=== PATIENT | female | born 1985 | race Two or more races ===

== ENCOUNTER 2024-05-20 11:40 | Emergency (ER) | payer MEDICAID, OTHER ==
[~2024-05-20] VITALS: Ht 170.2 cm; Wt 92.8 kg
--- NOTE | 2024-05-20 11:55 | ED.PDOC ---
GI ASSESSMENT HPI Comments 38Y F with PMHx fibroids presents to ED for chief complaint intermittent abd pain x4days with n/v/d and back pain. Pt states abd pain is located on middle and suprapubic region and is described as contractions. Pt denies chest pain, SOB, urinary symptoms, flank pain, and flu-like symptoms. Pt denies sick contact. Pt will have surgery for fibroids scheduled soon. No other symptoms or history reported. Time Seen by MD: 11:45 Reviewed Notes: Nurses Notes, Medications, Allergies Allergies: Coded Allergies: NO KNOWN ALLERGIES (Unverified , 05/20/24) Information Source: Patient Mode of Arrival: Ambulatory Timing: Days Duration: Since onset Quality: Other (contraction-like) Vomitus: Watery Stool: Loose, Watery Severity: Mild Recent: None Recent Hx of: None Pain Location: Epigastric, Periumbilical, Suprapubic Modifying Factors: Nothing Associated sign and symptoms: Nausea, Vomiting, Diarrhea, Abdominal Pain, Other Past Medical History PAST MEDICAL HISTORY: Denies Surgical History: Denies all surgeries [employer] History: Uterine Fibroids Family History Family History: Unknown Social History Smoker: Non-Smoker Alcohol: Denies ETOH Use Drugs: Denies Drug Use Lives In: Home Constitutional: denies: chills, diaphoresis, fatigue, fever, malaise, sweats, weakness, others EENTM: denies: blurred vision, double vision, ear bleeding, ear discharge, ear drainage, ear pain, ear ringing, eye pain, eye redness, hearing loss, mouth pain, mouth swelling, nasal discharge, nose bleeding, nose congestion, nose pain, photophobia, tearing, throat pain, throat swelling, voice changes, others Respiratory: denies: cough, hemoptysis, orthopnea, SOB at rest, shortness of breath, SOB with excertion, stridor, wheezing, others Cardiovascular: denies: chest pain, dizzy spells, diaphoresis, Dyspnea on exertion, edema, irregular heart beat, left arm pain, lightheadedness, pa lpitations, PND, syncope, others Gastrointestinal: reports: abdominal pain, diarrhea, nausea, vomiting; denies: abdomen distended, blood streaked bowels, constipated, dysphagia, difficulty swallowing, hematemesis, melena, poor appetite, poor fluid intake, rectal bleeding, rectal pain, others Genitourinary: denies: abnormal vagina bleeding, burning, dyspareunia, dysuria, flank pain, frequency, hematuria, incontinence, pain, , vagina discharge, urgency, others Neurological: denies: dizziness, fainting, headache, left sided numbness, left sided weakness, numbness, paresthesia, pre-existing deficit, right sided numbness, right sided weakness, seizure, speech problems, tingling, tremors, weakness, others Musculoskeletal: reports: back pain; denies: gout, joint pain, joint swelling, muscle pain, muscle stiffness, neck pain, others Integumetry: denies: bruises, change in color, change in hair/nails, dryness, laceration, lesions, lumps, rash, wounds, others Allergic/Immunocompromised: denies: Difficulty Healing, Frequent Infections, Hives, Itching, others Hematologic/Lymphatic: denies: anemia, blood clots, easy bleeding, easy bruis ing, swollen glands, others Endocrine: denies: excessive hunger, excessive sweating, excessive thirst, exc essive urination, flushing, intolerance to cold, intolerance to heat, unexplained weight gain, unexplained weight loss, others Psychiatric: denies: anxiety, bipolar disorder, depression, hopeless, panic disorder, schizophrenia, sleepless, suicidal, others All Other Systems: Reviewed and Negative (decreas) Physical Exam General Appearance: No Apparent Distress, Normal HEENT: Normal ENT Inspection, Pharynx Normal, TMs Normal Neck: Full Range of Motion, Non-Tender, Normal, Normal Inspection Respiratory: Chest Non-Tender, Lungs Clear, No Accessory Muscle Use, No Respiratory Distress, Normal Breath Sounds Cardiovascular: No Edema, No JVD, No Murmur, No Gallop, Normal Peripheral Pulses, Regular Rate/Rhythm Breast Exam: Deferred Gastrointestinal: No Organomegaly, No Pulsatile Mass, Normal Bowel Sounds, Soft, Suprapubic, Tenderness Genitalia: Deferred Pelvic: Deferred Rectal: Deferred Extremities: No calf tenderness, Normal capillary refill, Normal inspection, Normal range of motion, Non-tender, No pedal edema Musculoskeletal : Apperance: Normal Neurologic: Alert, supervisor mail carriers II-XII nml as Tested, No Motor Deficits, Normal Affect, Normal Mood, No Sensory Deficits Cerebellar Function: Normal Reflexes: Normal Skin: Dry, Normal Color, Warm Lymphatic: No Adenopathy Was a procedure done? Was a procedure done?: No GI differential Dx Differential Diagnosis: Gastritis/PUD, Gastroenteritis, Electrolyte Imbalance, Bacterial, Viral X-Ray, Labs, Meds, VS Vital Signs Date Time Temp Pulse Resp B/P (MAP) Pulse Ox O2 Delivery O2 Flow Rate FiO2 05/20/24 13:12 73 100 Room Air* 0 21 05/20/24 12:48 73 18 100 Room Air 05/20/24 12:48 98.7 73 18 109/63 (78) 100 98.7 05/20/24 11:52 98.7 88 16 146/95 (112) 98 Lab Test 05/20/24 12:02 05/20/24 12:00 05/20/24 11:47 Range/Units White Blood Count 5.3 4.4-10.8 10^3/uL Red Blood Count 4.58 4.0-5.20 10^6/uL Hemoglobin 9.5 L 12.2-16.2 g/dL Hematocrit 31.1 L 36.0-46.0 % Mean Corpuscular Volume 67.7 L 80.0-100.0 fL Mean Corpuscular Hemoglobin 20.7 L 28.0-32.0 pg Mean Corpuscular Hemoglobin Concent 30.6 L 32.0-36.0 g/dL Red Cell Distribution Width 17.2 H 11.8-14.3 % Platelet Count 326 140-450 10^3/uL Mean Platelet Volume 8.9 6.9-10.8 fL Neutrophils (%) (Auto) 59.9 37.0-80.0 % Lymphocytes (%) (Auto) 27.9 10.0-50.0 % Monocytes (%) (Auto) 8.5 0.0-12.0 % Eosinophils (%) (Auto) 0.7 0.0-7.0 % Basophils (%) (Auto) 3.0 H 0.0-2.0 % Neutrophils # (Auto) 3.2 1.6-8.6 10 ^3/uL Lymphocytes # (Auto) 1.5 0.4-5.4 10 ^3/uL Monocytes # (Auto) 0.4 0-1.3 10 ^3/uL Eosinophils # (Auto) 0 0-0.8 10 ^3/uL Basophils # (Auto) 0.2 0-0.2 10 ^3/uL Nucleated Red Blood Cells 0.3 % Platelet Estimate Adequate Hypochromasia (manual) Slight Microcytosis Slight Tear Drop Cells Few Ovalocytes Few Sodium Level 140 136-145 mmol/L Potassium Level 3.3 L 3.5-5.1 mmol/L Chloride Level 108 H 98-107 mmol/L Carbon Dioxide Level 25 20-31 mmol/L Anion Gap 7 5-15 Blood Urea Nitrogen 9 9-23 mg/dL Creatinine 0.77 0.550-1.02 mg/dL Glomerular Filtration Rate Calc 102 >90 mL/min BUN/Creatinine Ratio 11.7 10.0-20.0 Serum Glucose 104 74-106 mg/dL Calcium Level 9.6 8.7-10.4 mg/dL Total Bilirubin 0.6 0.2-1.0 mg/dL Aspartate Amino Transferase (AST) 32 13-40 U/L Alanine Aminotransferase (ALT) 30 7-40 U/L Alkaline Phosphatase 96 46-116 U/L Total Protein 8.0 5.7-8.2 g/dL Albumin 4.7 3.2-4.8 g/dL Lipase 42 12-53 U/L Influenza Type A Antigen Negative Negative Influenza Type B Antigen Negative Negative Urine Color Yellow Yellow Urine Clarity Turbid H Clear Urine pH 5.5 5.0-9.0 Urine Specific Weir 1.023 1.001-1.035 Urine Protein Trace H Negative Urine Ketones Trace Negative Urine Blood Negative Negative /uL Urine Nitrite Negative Negative Urine Bilirubin Negative Negative Urine Urobilinogen Normal Negative mg/dL Urine Leukocyte Esterase 3+ Negative /uL Urine RBC 4 0 - 4 /hpf Urine WBC 43 0 - 5 /hpf Urine Squamous Epithelial Cells Mod <5 /hpf Urine Bacteria None seen None Seen /hpf Urine Mucus Few None Seen Urine Glucose Normal Normal mg/dL Urine Test Negative Negative Current Medications Medications (Trade) Dose Ordered Sig/Leyla Route Start Time Stop Time Status Last Admin Sodium Chloride 1,000 ml @ 1,000 mls/hr Q1H ONCE IV 05/20/24 12:00 05/20/24 12:59 DC 05/20/24 12:30 Ondansetron HCl (Zofran) 4 mg ONCE ONCE IV 05/20/24 12:00 05/20/24 12:01 DC 05/20/24 12:[address] [address] Ph: [phone] DIAGNOSTIC IMAGING Diagnostic Imaging Report : [id number] Signed PATIENT: ARLENE PALMER CACCT: [id number] UNIT: [id number] : 1985 LOC: ER ROOM / BED: / AGE / SEX: 38 / F ADM STATUS: REG ER SERVICE 1149 ORDERING PHYSICIAN: SUE LÓPEZ MD PROCEDURE(s): CXRP - CHEST PORTABLE REASON: nausea ORDER NUMBER(s): [id number], ACCESSION NUMBER(s): [id number] CHEST RADIOGRAPH Indication: nausea Technique: PA upright view of the chest was performed. COMPARISON: None FINDINGS: No pneumothorax, pulmonary edema, or consolidative infiltrates. The heart is not enlarged. Fractures are identified about the bony thorax. There is mild thoracic scoliosis. IMPRESSION: No acute intrathoracic process. ATED BY: KAVITA SLAUGHTER MD DICTATED DATE/TIME: 05/20/24 1322 SIGNED BY: KAVITA SLAUGHTER MD SIGNED DATE/TIME: 05/20/24 1322 CC: [place] [id number] Ph: [phone] DIAGNOSTIC IMAGING Diagnostic Imaging Report : [id number] Signed PATIENT: ARLENE PALMER CACCT: [id number] UNIT: [id number] : 1985 LOC: ER ROOM / BED: / AGE / SEX: 38 / F ADM STATUS: REG ER SERVICE 1149 ORDERING PHYSICIAN: SUE LÓPEZ MD PROCEDURE(s): ABPL - CT AB PEL WO CON-NO ORAL OR IV REASON: abdominal pain, nausea, vomiting, diarrhea ORDER NUMBER(s): [id number], ACCESSION NUMBER(s): [id number] Procedure: CT CT AB PEL WO CON-NO ORAL OR IV 05/20/2024 01:14 PM Indication: abdominal pain, nausea, vomiting, diarrhea Comparison Study: None available at time of dictation. Technique: Axial images were obtained and reformatted in coronal and sagittal planes. All CT scans at this medical facility are performed using dose modulation techniques as appropriate to a performed exam including the following: Automated exposure control was utilized; adjustment of the MA and/or KV according to patient size; and use of iterative reconstruction technique. CT Dose: CTDI volume is 19.24 mGy. Dose-length product is 905.52 mGy*cm FINDINGS: Lower Chest: Unremarkable. Hepatobiliary: Unremarkable. Spleen: Mildly enlarged spleen, 12.8 cm in craniocaudal. Pancreas: Unremarkable. Adrenal Glands: Unremarkable. tract: The kidneys are normal in size bilaterally without hydronephrosis or nephrolithiasis. The urinary bladder is unremarkable. GI tract: The stomach is grossly normal in appearance. No evidence of small bowel obstruction. Liquid stool is seen in the lumen of the ascending colon. No bowel wall thickening is noted.. The appendix is not visualized. No inflammatory change is noted in the right lower quadrant. Lymphatics: No mesenteric, retroperitoneal or periportal lymphadenopathy. Vasculature: The abdominal aorta is normal in in caliber. Pelvic Organs: Retroverted uterus. Few subcentimeter calcifications noted in the uterus reflecting calcified leiomyomas. Bones/soft tissues: No acute abnormality. Other: None. IMPRESSION: 1. Liquid stool in the lumen of the ascending colon compatible with diarrheal s collado. No signs of colitis. Small bowel is unremarkable. ATED BY: AKUA BEST MD DICTATED DATE/TIME: 05/20/24 1351 SIGNED BY: AKUA BEST MD SIGNED DATE/TIME: 05/20/24 1351 CC: Time of 1ST Reevaluation: 12:15 Reevaluation 1ST: Unchanged Time of 2ND Reevaluation: 14:32 Reevaluation 2ND: Improved Patient Education/Counseling: Diagnosis, Treatment, Prognosis, Need For Follow Up Family Education/Counseling: No Family Present Additional Information I reviewed the following notes from patient's past medical encounters: None The following tests were ordered, and results were reviewed by me: CBC, CMP, Lipase, UA, urine test, rapid influenza A&B, CXR, CT abd/pelvis WO contrast Additional Information was gathered from interviewing the following independent historians: None I reviewed and agreed with the following test results read by other providers: CXR, CT abd/pelvis WO contrast I discussed treatment and results with medical personnel. pt is feeling better now. the ct shows no acute pathology. her urine is contaminated, but may reflect an uti. i will start her on keflex for the uti and imodium. she is stable for discharge Departure 1 Departure Time of Disposition: 14:33 Impression: Primary Impression: Abdominal pain Qualified Codes: R10.9 - Unspecified abdominal pain Additional Impressions: Diarrhea Qualified Codes: R19.7 - Diarrhea, unspecified UTI (urinary tract infection) Qualified Codes: N30.00 - Acute cystitis without hematuria Disposition: HOME / SELF CARE / HOMELESS Condition: Good e-Prescriptions Loperamide Hcl (Imodium) 2 Mg Cp 2 MG PO Q12HP PRN for 2 Days, #4 CAP Prov: SUE LÓPEZ MD 05/20/24 Cephalexin Monohydrate (Cephalexin) 500 Mg Tab 1 TAB PO QID, #40 TAB Prov: SUE LÓPEZ MD 05/20/24 Discharged With: Self Critical Care Note Critical Care Time?: Yes (55 min-critical care time only) Critical care comment: Due to concerns for patients condition deteriorating, the care required my highest level of attention and readiness to intervene. I assessed the patient, reviewed the medical records, ordered the appropriate tests and treatments, then reassessed for results and responsiveness. I communicated with medical personnel and consultants and formulated a plan of care. Total critical care time excludes any procedures Stability Stability form required: No Heart Score Heart Score: Heart Score Response (Comments) Value History N/A 0 EKG N/A 0 Age N/A 0 Risk Factors N/A 0 Troponin N/A 0 Total 0 I personally scribed for SUE LÓPEZ MD (FRANCISCO J) on 05/20/24 at 11:55. Electronically submitted by Mary Meng ([employer]). I personally scribed for SUE LÓPEZ MD (FRANCISCO J) on 05/20/24 at 11:57. Electronically submitted by Mary Meng ([employer]). I personally scribed for SUE LÓPEZ MD (FRANCISCO J) on 05/20/24 at 13:36. Electronically submitted by Mary Meng ([employer]). I personally scribed for SUE LÓPEZ MD ([facility] on 05/20/24 at 13:55. Electronically submitted by Mary Meng ([email or web address]). SUE LÓPEZ MD May 20, 2024 11:55
[2024-05-20] MEDS: SODIUM CHLORIDE 0.9% 1,000 ML IV ONE (12:30)
[2024-05-20] MEDS: ONDANSETRON HCL 4 MG/2 ML VIAL IV ONE (12:41)
[2024-05-20 12:44] LABS: Urine Bacteria None Seen /hpf (None Seen)
[2024-05-20 12:44] LABS: Alanine Aminotransferase 30 U/L (7-40); Albumin 4.7 g/dL (3.2-4.8); Alkaline Phosphatase 96 U/L (46-116); Anion Gap 7 (5-15); Aspartate Aminotransferase 32 U/L (13-40); BUN/Creatinine Ratio 11.7 (10.0-20.0); Blood Urea Nitrogen 9 mg/dL (9-23); Calcium 9.6 mg/dL (8.7-10.4); Carbon Dioxide 25 mmol/L (20-31); Glucose 104 mg/dL (74-106); Lipase 42 U/L (12-53); Sodium 140 mmol/L (136-145)
[2024-05-20 12:45] LABS: Bilirubin, Total 0.6 mg/dL (0.2-1.0)
[2024-05-20 12:51] LABS: Rapid Influenza A Negative (Negative); Rapid Influenza B Negative (Negative)
[2024-05-20 12:51] LABS: Eosinophils # (auto) 0 10 ^3/uL (0-0.8); Hemoglobin 9.5 g/dL (12.2-16.2); Lymphocytes # (auto) 1.5 10 ^3/uL (0.4-5.4); Monocytes # (auto) 0.4 10 ^3/uL (0-1.3); Neutrophils # (auto) 3.2 10 ^3/uL (1.6-8.6); Nucleated Red Blood Cells % 0.3 %
[2024-05-20 12:53] LABS: Basophils # (auto) 0.2 10 ^3/uL (0-0.2); Eosinophils % (auto) 0.7 % (0.0-7.0); Hematocrit 31.1 % (36.0-46.0); Lymphocytes % (auto) 27.9 % (10.0-50.0); Mean Corpuscular Hemoglobin 20.7 pg (28.0-32.0); Mean Corpuscular Hgb Conc. 30.6 g/dL (32.0-36.0); Mean Corpuscular Volume 67.7 fL (80.0-100.0); Monocytes % (auto) 8.5 % (0.0-12.0); Neutrophils % (auto) 59.9 % (37.0-80.0); Platelet Count (auto) 326 10^3/uL (140-450); Red Blood Cells 4.58 10^6/uL (4.0-5.20); Red Cell Distribution Width 17.2 % (11.8-14.3); White Blood Cell 5.3 10^3/uL (4.4-10.8)
[2024-05-20 13:07] LABS: Hypochromia Slight; Ovalocytes FEW; Tear Drop Cells FEW
[2024-05-20 13:08] LABS: Platelet Estimate Adequate
[2024-05-20 13:12] VITALS: PULSE 73; O2SAT 100
[2024-05-20 13:13] LABS: Urine Blood Negative /uL (Negative); Urine Clarity Turbid (Clear); Urine Color Yellow (Yellow); Urine Mucus FEW (None Seen); Urine Protein, UAD TRACE (Negative); Urine Specific Gravity 1.023 (1.001-1.035); Urine Squamous Epithelial Cell MOD /hpf (<5); Urine Urobilinogen Normal (Negative); Urine WBC 43 /hpf (0 - 5); Urine pH 5.5 (5.0-9.0)
[2024-05-20 13:15] LABS: Chloride 108 mmol/L (98-107); Potassium 3.3 mmol/L (3.5-5.1)
--- NOTE | 2024-05-20 13:25 | DVH ---
CHEST RADIOGRAPH Indication: nausea Technique: PA upright view of the chest was performed. COMPARISON: None FINDINGS: No pneumothorax, pulmonary edema, or consolidative infiltrates. The heart is not enlarged. Fractures are identified about the bony thorax. There is mild thoracic scoliosis. IMPRESSION: No acute intrathoracic process.
--- NOTE | 2024-05-20 13:54 | DVH ---
Procedure: CT CT AB PEL WO CON-NO ORAL OR IV 05/20/2024 01:14 PM Indication: abdominal pain, nausea, vomiting, diarrhea Comparison Study: None available at time of dictation. Technique: Axial images were obtained and reformatted in coronal and sagittal planes. All CT scans at this medical facility are performed using dose modulation techniques as appropriate t o a performed exam including the following: Automated exposure control was utilized; adjustment of th e MA and/or KV according to patient size; and use of iterative reconstruction technique. CT Dose: CTDI volume is 19.24 mGy. Dose-length product is 905.52 mGy*cm FINDINGS: Lower Chest: Unremarkable. Hepatobiliary: Unremarkable. Spleen: Mildly enlarged spleen, 12.8 cm in craniocaudal. Pancreas: Unremarkable. Adrenal Glands: Unremarkable. tract: The kidneys are normal in size bilaterally without hydronephrosis or nephrolithiasis. The urinary bladder is unremarkable. GI tract: The stomach is grossly normal in appearance. No evidence of small bowel obstruction. Liquid stool is seen in the lumen of the ascending colon. No bowel wall thickening is noted.. The appendi x is not visualized. No inflammatory change is noted in the right lower quadrant. Lymphatics: No mesenteric, retroperitoneal or periportal lymphadenopathy. Vasculature: The abdominal aorta is normal in in caliber. Pelvic Organs: Retroverted uterus. Few subcentimeter calcifications noted in the uterus reflecting c alcified leiomyomas. Bones/soft tissues: No acute abnormality. Other: None. IMPRESSION: 1. Liquid stool in the lumen of the ascending colon compatible with diarrheal state. No signs of coli tis. Small bowel is unremarkable.
[2024-05-20] MEDS ORDERED: LOPE2CAP16 PO (14:35)
[2024-05-20] MEDS ORDERED: CEPH500T PO (14:35)
[2024-05-20 15:00] VITALS: BP 110/58; PULSE 69; RESP 16; TEMP 98.2; O2SAT 100
== END 2024-05-20 15:01 | disposition home or self-care (01) ==
LOC: ER 11:43
DX: N39.0 Urinary tract infection, site not specified (principal); R10.9 Unspecified abdominal pain; R19.7 Diarrhea, unspecified; D25.9 Leiomyoma of uterus, unspecified; Z32.02 Encounter for pregnancy test, result negative
CPT/HCPCS: 36415; 71045; 74176; 80053; 81001; 81025; 83690; 85025; 87804; 96361; 96374; 99285; J2405

== ENCOUNTER 2024-11-17 14:05 | Emergency (ER) | payer MEDICAID ==
[~2024-11-17] VITALS: Ht 170.2 cm; Wt 93.1 kg
[~2024-11-17 14:05] MED LIST: CEPH500T PO; LOPE2CAP16 PO
[2024-11-17 15:09] LABS: Urine Protein, UAD Negative (Negative)
[2024-11-17 15:27] LABS: Hematocrit 31.8 % (36.0-46.0); Hemoglobin 9.6 g/dL (12.2-16.2); Mean Corpuscular Hemoglobin 19.0 pg (28.0-32.0); Mean Corpuscular Volume 62.8 fL (80.0-100.0); Nucleated Red Blood Cells % 0.1 %
[2024-11-17 15:34] LABS: Chloride 104 mmol/L (98-107); Sodium 139 mmol/L (136-145)
[2024-11-17 15:35] LABS: Anion Gap 8 (5-15); Calcium 9.9 mg/dL (8.7-10.4); Carbon Dioxide 27 mmol/L (20-31); Potassium 3.5 mmol/L (3.5-5.1)
--- NOTE | 2024-11-17 15:38 | ED.PDOC ---
GI ASSESSMENT HPI Comments A 39 YEAR OLD FEMALE, WITH A SHX OF HYSTERECTOMY IN 07/25, PRESENTS TO THE ED WITH COMPLAINT OF LLQ ABDOMINAL PAIN FOR X2 DAYS. PATIENT DENIES DYSURIA, URGENCY, HEMATURIA, FEVER, CHILLS, SHORTNESS OF BREATH, CHEST PAIN, NAUSEA, VOMITING, HEADACHE, OR OTHER COMPLAINTS. NO OTHER SYMPTOMS OR MODIFYING FACTORS AT THIS TIME. PATIENT IS ALERT, ORIENTED X 4, AND HAS STEADY GAIT. Chief Complaint: Abdominal Pain Time Seen by MD: 15:05 Primary Care Provider: ADA Reviewed Notes: Nurses Notes, Medications, Allergies Allergies: Coded Allergies: NO KNOWN ALLERGIES (Unverified , 05/20/24) Home Meds Active Scripts Loperamide Hcl (Imodium) 2 Mg Cp, 2 MG PO Q12HP PRN for 2 Days, #4 CAP Prov:SUE LÓPEZ MD 05/21/24 Cephalexin Monohydrate (Cephalexin) 500 Mg Tab, 1 TAB PO QID, #40 TAB Prov:SUE LÓPEZ MD 05/21/24 Information Source: Patient Mode of Arrival: Ambulatory Timing: Days Duration: Since onset Prehospital treatment: None Quality: Aching, Cramping, Colicky Vomitus: None Severity: Moderate Recent: None Recent Hx of: None Pain Location: LLQ Associated sign and symptoms: Abdominal Pain Past Medical History PAST MEDICAL HISTORY: Denies Surgical History: Hysterectomy CHEMIST ORGANIC History: Uterine Fibroids Family History Family History: Unknown Social History Smoker: Non-Smoker Alcohol: Denies ETOH Use Drugs: Denies Drug Use Lives In: Home Constitutional: denies: chills, diaphoresis, fatigue, fever, malaise, sweats, weakness, others EENTM: denies: blurred vision, double vision, ear bleeding, ear discharge, ear drainage, ear pain, ear ringing, eye pain, eye redness, hearing loss, mouth pain, mouth swelling, nasal discharge, nose bleeding, nose congestion, nose pain, photophobia, tearing, throat pain, throat swelling, voice changes, others Respiratory: denies: cough, hemoptysis, orthopnea, SOB at rest, shortness of breath, SOB with excertion, stridor, wheezing, others Cardiovascular: denies: chest pain, dizzy spells, diaphoresis, Dyspnea on exertion, edema, irregular heart beat, left arm pain, lightheadedness, palpitations, PND, syncope, others Gastrointestinal: reports: abdominal pain; denies: abdomen distended, blood streaked bowels, constipated, diarrhea, dysphagia, difficulty swallowing, hematemesis, melena, nausea, poor appetite, poor fluid intake, rectal bleeding, rectal pain, vomiting, others Genitourinary: denies: abnormal vagina bleeding, burning, dyspareunia, dysuria, flank pain, frequency, hematuria, incontinence, pain, , vagina discharge, urgency, others Neurological: denies: dizziness, fainting, headache, left sided numbness, left sided weakness, numbness, paresthesia, pre-existing deficit, right sided numbness, right sided weakness, seizure, speech problems, tingling, tremors, weakness, others Musculoskeletal: denies: back pain, gout, joint pain, joint swelling, muscle p ain, muscle stiffness, neck pain, others Integumetry: denies: bruises, change in color, change in hair/nails, dryness, laceration, lesions, lumps, rash, wounds, others Allergic/Immunocompromised: denies: Difficulty Healing, Frequent Infections, Hives, Itching, others Hematologic/Lymphatic: denies: anemia, blood clots, easy bleeding, easy bruising, swollen glands, others Endocrine: denies: excessive hunger, excessive sweating, excessive thirst, excessive urination, flushing, intolerance to cold, intolerance to heat, unexplained weight gain, unexplained weight loss, others Psychiatric: denies: anxiety, bipolar disorder, depression, hopeless, panic disorder, schizophrenia, sleepless, suicidal, others All Other Systems: Reviewed and Negative Physical Exam General Appearance: No Apparent Distress, Obese HEENT: Normal ENT Inspection, PERRL/EOMI, Pharynx Normal, TMs Normal Neck: Full Range of Motion, Non-Tender, Normal, Normal Inspection Respiratory: Chest Non-Tender, Lungs Clear, No Accessory Muscle Use, No Respiratory Distress, Normal Breath Sounds Cardiovascular: No Edema, No JVD, No Murmur, No Gallop, Normal Peripheral Pulses, Regular Rate/Rhythm Breast Exam: Deferred Gastrointestinal: LLQ, No Organomegaly, No Pulsatile Mass, Normal Bowel Sounds, Soft, Tenderness (LEFT MIDDLE ABD, NO GUARDING AND REBOUND TENDERNESS. ) Genitalia: Deferred Pelvic: Deferred Rectal: Deferred Extremities: No calf tenderness, Normal capillary refill, Normal inspection, Normal range of motion, Non-tender, No pedal edema Musculoskeletal : Apperance: Normal Neurologic: Alert, hardscape foreman II-XII nml as Tested, No Motor Deficits, Normal Affect, Normal Mood, No Sensory Deficits Cerebellar Function: Normal Reflexes: Normal Skin: Dry, Normal Color, Warm Peripheral Pulses: 2+ carotid (R), 2+ carotid (L) Lymphatic: No Adenopathy Was a procedure done? Was a procedure done?: No GI differential Dx Differential Diagnosis: Gastroenteritis, Hernia, Inflammatory BD, UTI, Urolithiasis, Dehydration, Bacterial, Parasitic, Viral X-Ray, Labs, Meds, VS Vital Signs Date Time Temp Pulse Resp B/P (MAP) Pulse Ox O2 Delivery O2 Flow Rate FiO2 11/17/24 14:30 98.9 89 16 140/85 (103) 100 98.9 Lab Test 11/17/24 15:13 11/17/24 14:32 Range/Units White Blood Count 8.8 4.4-10.8 10^3/uL Red Blood Count 5.06 4.0-5.20 10^6/uL Hemoglobin 9.6 L 12.2-16.2 g/dL Hematocrit 31.8 L 36.0-46.0 % Mean Corpuscular Volume 62.8 L 80.0-100.0 fL Mean Corpuscular Hemoglobin 19.0 L 28.0-32.0 pg Mean Corpuscular Hemoglobin Concent 30.3 L 32.0-36.0 g/dL Red Cell Distribution Width 19.7 H 11.8-14.3 % Platelet Count 353 140-450 10^3/uL Mean Platelet Volume 8.7 6.9-10.8 fL Neutrophils (%) (Auto) 59.1 37.0-80.0 % Lymphocytes (%) (Auto) 32.6 10.0-50.0 % Monocytes (%) (Auto) 5.9 0.0-12.0 % Eosinophils (%) (Auto) 1.6 0.0-7.0 % Basophils (%) (Auto) 0.8 0.0-2.0 % Neutrophils # (Auto) 5.2 1.6-8.6 10 ^3/uL Lymphocytes # (Auto) 2.9 0.4-5.4 10 ^3/uL Monocytes # (Auto) 0.5 0-1.3 10 ^3/uL Eosinophils # (Auto) 0.1 0-0.8 10 ^3/uL Basophils # (Auto) 0.1 0-0.2 10 ^3/uL Nucleated Red Blood Cells 0.1 % Sodium Level 139 136-145 mmol/L Potassium Level 3.5 3.5-5.1 mmol/L Chloride Level 104 98-107 mmol/L Carbon Dioxide Level 27 20-31 mmol/L Anion Gap 8 5-15 Blood Urea Nitrogen 14 9-23 mg/dL Creatinine 0.84 0.550-1.02 mg/dL Glomerular Filtration Rate Calc 91 >90 mL/min BUN/Creatinine Ratio 16.7 10.0-20.0 Serum Glucose 90 74-106 mg/dL Calcium Level 9.9 8.7-10.4 mg/dL Urine Color Yellow Yellow Urine Clarity Clear Clear Urine pH 5.5 5.0-9.0 Urine Specific Ledbetter 1.030 1.001-1.035 Urine Protein Negative Negative Urine Ketones Negative Negative Urine Blood Negative Negative /uL Urine Nitrite Negative Negative Urine Bilirubin Negative Negative Urine Urobilinogen 2 H Negative mg/dL Urine Leukocyte Esterase Negative Negative /uL Urine RBC 1 0 - 4 /hpf Urine Microscopic WBC 1 0-5 /HPF Urine Squamous Epithelial Cells Few <5 /hpf Urine Bacteria None seen None Seen /hpf Urine Mucus Few None Seen Urine Glucose Normal Normal mg/dL Urine Test Negative Negative CT CT AB PEL WO CON-NO ORAL OR IV INDICATION: LEFT MIDDLE ABD PAIN EXAM DATE: 11/17/2024 03:31 PM COMPARISON: CT CT AB PEL WO CON-NO ORAL OR IV on DOS: 05/20/24 RADIATION DOSE: CTDIvol: 14 mGy, DLP: 716 mGy*cm PROCEDURE: Helical CT images were obtained of the abdomen and pelvis without IV contrast Sagittal and coronal reconstructions are provided. ORAL CONTRAST: None. ADDITIONAL IMAGES / REFORMATS: None All CT scans at this medical facility are performed using dose modulation techniques as appropriate to a performed exam including the following: Automated exposure control was utilized; adjustment of the MA and/or KV according to patient size; and use of iterative reconstruction technique. FINDINGS: LUNG BASE: Normal. LIVER: Normal. GALLBLADDER AND BILIARY TREE: No calcified gallstones. Normal caliber wall. No intra- or extrahepatic biliary ductal dilation. PANCREAS: Normal. SPLEEN: Normal. BOWEL: Mild left pericolonc edema could be mild colitis. Appendix is not seen. ADRENALS: Normal. KIDNEYS AND URETER: Normal. BLADDER: Normal. REPRODUCTIVE ORGANS: Normal. LYMPH NODES:No lymphadenopathy. PERITONEUM: No ascites or free air. No other fluid collection. Trace pelvic fluid. VESSELS: Scattered atherosclerotic calcifications are noted. RETROPERITONEUM: Normal. ABDOMINAL WALL: Normal. BONES: Scattered osseous degenerative changes are noted. IMPRESSION: Mild left pericolonc edema could be mild colitis. X-Ray, Labs, Meds, VS Comment EXTERNAL MEDICAL RECORDS REVIEWED: [NONE] INDEPENDENT HISTORIANS: [NONE] SOCIAL DETERMINANTS OF HEALTH: [NONE] LABS ORDERED: UA, CBC, BMP, TEST REVIEWED AND INTERPRETED RESULTS: Hgb 9.6, Hct 31.8, MCV 62.8, MCH 19, MCHC 30.3, RDW 19.7 IMAGING ORDERED: ABDOMINAL CT TREATMENTS ORDERED: PT DECLINED PAIN MEDICATION AND RX. PROCEDURES PERFORMED: NONE CRITICAL CARE TIME: NONE I HAVE DISCUSSED THE PATIENT WITH THE ATTENDING PHYSICIAN DR. MILTON AND HE AGREES WITH THE PATIENT'S PLAN OF CARE AND DISPOSITION. BASED ON HISTORY OF PRESENT ILLNESS, AND PHYSICAL EXAM, PATIENT WILL BE DISCHARGED HOME. DISCUSSED PLAN FOR DISCHARGE HOME WITH RX: CIPRO 500MG. MEDICATION WARNINGS GIVEN. SHARED DECISION MAKING: DISCUSSED WITH PATIENT THAT THEIR WORKUP WAS NORMAL. PATIENT INSTRUCTED TO FOLLOW UP WITH PRIMARY CARE PROVIDER IN 1-2 DAYS FOR RE- EVALUATION OF SYMPTOMS. PATIENT VERBALIZES UNDERSTANDING TO RETURN TO ED FOR NEW OR WORSENING SYMPTOMS OR IF FOLLOW UP WITH PCP CANNOT BE OBTAINED. PATIENT FEELS COMFORTABLE GOING HOME AT THIS TIME. ALL QUESTIONS ADDRESSED AT TIME OF DISCHARGE. Images Reviewed?: Images reviewed and evaluated by me Time of 1ST Reevaluation: 15:34 Reevaluation 1ST: Improved Patient Education/Counseling: Diagnosis, Treatment, Need For Follow Up Family Education/Counseling: Diagnosis, Treatment, No Family Present Medical Screening: No EMC Exist At This Time SEPSIS Sepsis Screen Date sepsis recognized/suspect: Nov 17, 2024 Time Sepsis recognized/suspect: 1430 Recent Procedure: No On Antibiotic Therapy: No Respiratory Rate >20: No Heart Rate >90: No Temp<36 C (96.8 F) or >38.3 C: No SBP <90 or MAP <65 mmHG: No New Acute Mental Status Change: No Is the patient on CPAP, BIPAP,: Yes Physician Orders Ct Ab Pel Wo Con-No Oral Or Iv (11/17/24 15:25) Vital Signs Date Time Temp Pulse Resp B/P (MAP) Pulse Ox O2 Delivery O2 Flow Rate FiO2 11/17/24 14:30 98.9 89 16 140/85 (103) 100 98.9 Laboratory Tests Test 11/17/24 15:13 White Blood Count 8.8 10^3/uL (4.4-10.8) Departure 1 Departure Time of Disposition: 16:20 Impression: Primary Impression: Acute colitis Disposition: HOME / SELF CARE / HOMELESS Condition: Stable Additional Instructions: FOLLOW-UP WITH PCP IN 1 TO 2 DAYS. TAKE MEDICATIONS PRESCRIBED. RETURN TO ED FOR ANY NEW OR WORSENING SYMPTOMS. Discharged With: Self Critical Care Note Critical Care Time?: No Stability Stability form required: No Heart Score Heart Score: Heart Score Response (Comments) Value History N/A 0 EKG N/A 0 Age N/A 0 Risk Factors N/A 0 Troponin N/A 0 Total 0 LIDA SCHMITT Nov 17, 2024 15:37
[2024-11-17 15:40] LABS: BUN/Creatinine Ratio 16.7 (10.0-20.0); Blood Urea Nitrogen 14 mg/dL (9-23); Glucose 90 mg/dL (74-106)
--- NOTE | 2024-11-17 16:07 | DVH ---
CT CT AB PEL WO CON-NO ORAL OR IV INDICATION: LEFT MIDDLE ABD PAIN EXAM DATE: 11/17/2024 03:31 PM COMPARISON: CT CT AB PEL WO CON-NO ORAL OR IV on DOS: 05/20/24 RADIATION DOSE: CTDIvol: 14 mGy, DLP: 716 mGy*cm PROCEDURE: Helical CT images were obtained of the abdomen and pelvis without IV contrast Sagittal and coronal reconstructions are provided. ORAL CONTRAST: None. ADDITIONAL IMAGES / REFORMATS: None All C T scans at this medical facility are performed using dose modulation techniques as appropriate to a p erformed exam including the following: Automated exposure control was utilized; adjustment of the MA and/or KV according to patient size; and use of iterative reconstruction technique. FINDINGS: LUNG BASE: Normal. LIVER: Normal. GALLBLADDER AND BILIARY TREE: No calcified gallstones. Normal caliber wall. No intra- or extrahepatic biliary ductal dilation. PANCREAS: Normal. SPLEEN: Normal. BOWEL: Mild left pericolonc edema could be mild colitis. Appendix is not seen. ADRENALS: Normal. KIDNEYS AND URETER: Normal. BLADDER: Normal. REPRODUCTIVE ORGANS: Normal. LYMPH NODES:No lymphadenopathy. PERITONEUM: No ascites or free air. No other fluid collection. Trace pelvic fluid. VESSELS: Scattered atherosclerotic calcifications are noted. RETROPERITONEUM: Normal. ABDOMINAL WALL: Normal. BONES: Scattered osseous degenerative changes are noted. IMPRESSION: Mild left pericolonc edema could be mild colitis.
[2024-11-17] MEDS ORDERED: KETOROLAC TROMETH 60MG/2ML VIAL IM ONE (16:15)
[2024-11-17] MEDS ORDERED: CIPR-173 PO (16:21)
[2024-11-17 16:23] VITALS: BP 133/80; PULSE 75; RESP 16; TEMP 98; O2SAT 100
== END 2024-11-17 16:28 | disposition home or self-care (01) ==
LOC: ER 14:05
DX: K52.9 Noninfective gastroenteritis and colitis, unspecified (principal); Z90.710 Acquired absence of both cervix and uterus; Z79.899 Other long term (current) drug therapy
CPT/HCPCS: 36415; 74176; 80048; 81001; 81025; 85025

== ENCOUNTER 2025-03-20 06:44 | Inpatient (IN) | payer MEDICAID ==
[~2025-03-20] VITALS: Ht 170.2 cm; Wt 94.4 kg
[~2025-03-20 06:44] MED LIST changes: +CIPR-173 PO
[2025-03-20] MEDS: MORPHINE SULFATE 4 MG/ML SYR/VIAL IV ONE (07:00)
--- NOTE | 2025-03-20 07:02 | ED.PDOC ---
GI ASSESSMENT HPI Comments 39 year old female presents to the ED with a chief complaint of abdominal pain onset 3 days. Patient states she began experiencing LLQ pain as well as diarrhea 3 days ago, woke up this morning around 01:00 experiencing nausea/vomiting, generalized weakness. Currently rates pain 5/10. Son is experiencing flu-like symptoms. Denies fever, hematemesis, dysuria, hematuria, chest pain, shortness of breath, dizziness, headache, cough, cold, congestion. NO other symptoms or modifying factors present at this time. Chief Complaint: Abdominal Pain Time Seen by MD: 06:55 Primary Care Provider: ADA Reviewed Notes: Medications, Allergies Allergies: Coded Allergies: NO KNOWN ALLERGIES (Unverified , 05/20/24) Home Meds Active Scripts Ciprofloxacin Hcl (Cipro) 500 Mg Tab, 1 TAB PO BID, #20 TAB Prov:LIDA SCHMITT 11/17/24 Loperamide Hcl (Imodium) 2 Mg Cp, 2 MG PO Q12HP PRN for 2 Days, #4 CAP Prov:SUE LÓPEZ MD 05/21/24 Cephalexin Monohydrate (Cephalexin) 500 Mg Tab, 1 TAB PO QID, #40 TAB Prov:SUE LÓPEZ MD 05/21/24 Information Source: Patient Mode of Arrival: Ambulatory Timing: Days Duration: Since onset Prehospital treatment: None Quality: Sharp Stool: Loose Severity: Moderate Recent: None Recent Hx of: None Pain Location: LLQ Associated sign and symptoms: Nausea, Vomiting, Diarrhea, Abdominal Pain Past Medical History PAST MEDICAL HISTORY: Denies Surgical History: 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 Family History Family History: Family hx of DM, Family hx of Kidney liam Social History Smoker: Non-Smoker Alcohol: Denies ETOH Use Drugs: Denies Drug Use Lives In: Home Constitutional: reports: chills, weakness; denies: diaphoresis, fatigue, fever, malaise, sweats, others EENTM: denies: blurred vision, double vision, ear bleeding, ear discharge, ear drainage, ear pain, ear ringing, eye pain, eye redness, hearing loss, mouth pain, mouth swelling, nasal discharge, nose bleeding, nose congestion, nose pain, photophobia, tearing, throat pain, throat swelling, voice changes, others Respiratory: denies: cough, hemoptysis, orthopnea, SOB at rest, shortness of breath, SOB with excertion, stridor, wheezing, others Cardiovascular: denies: chest pain, dizzy spells, diaphoresis, Dyspnea on exertion, edema, irregular heart beat, left arm pain, lightheadedness, palpitations, PND, syncope, others Gastrointestinal: reports: abdominal pain, diarrhea, nausea, vomiting; denies: abdomen distended, blood streaked bowels, constipated, dysphagia, difficulty swallowing, hematemesis, melena, poor appetite, poor fluid intake, rectal bleeding, rectal pain, others Genitourinary: denies: abnormal vagina bleeding, burning, dyspareunia, dysuria, flank pain, frequency, hematuria, incontinence, pain, , vagina dis charge, urgency, others Neurological: reports: weakness; denies: dizziness, fainting, headache, left sided numbness, left sided weakness, numbness, paresthesia, pre-existing deficit, right sided numbness, right sided weakness, seizure, speech problems, tingling, tremors, others Musculoskeletal: denies: back pain, gout, joint pain, joint swelling, muscle pain, muscle stiffness, neck pain, others Integumetry: denies: bruises, change in color, change in hair/nails, dryness, laceration, lesions, lumps, rash, wounds, others Allergic/Immunocompromised: denies: Difficulty Healing, Frequent Infections, Hives, Itching, others Hematologic/Lymphatic: denies: anemia, blood clots, easy bleeding, easy bruising, swollen glands, others Endocrine: denies: excessive hunger, excessive sweating, excessive thirst, excessive urination, flushing, intolerance to cold, intolerance to heat, unexplained weight gain, unexplained weight loss, others Psychiatric: denies: anxiety, bipolar disorder, depression, hopeless, panic disorder, schizophrenia, sleepless, suicidal, others All Other Systems: Reviewed and Negative Physical Exam General Appearance: Moderate Distress HEENT: Normal ENT Inspection, Pharynx Normal, TMs Normal Neck: Full Range of Motion, Non-Tender, Normal, Normal Inspection Respiratory: Chest Non-Tender, Lungs Clear, No Accessory Muscle Use, No Respiratory Distress, Normal Breath Sounds Cardiovascular: No Edema, No JVD, No Murmur, No Gallop, Normal Peripheral Puls es, Regular Rate/Rhythm Breast Exam: Deferred Gastrointestinal: LLQ, No Organomegaly, No Pulsatile Mass, Normal Bowel Sounds, Soft, Tenderness Genitalia: Deferred Pelvic: Deferred Rectal: Deferred Extremities: No calf tenderness, Normal capillary refill, Normal inspection, Normal range of motion, Non-tender, No pedal edema Musculoskeletal : Apperance: Normal Neurologic: Alert, ring facer II-XII nml as Tested, Motor Weakness, Normal Affect, Normal Mood, No Sensory Deficits Cerebellar Function: Normal Reflexes: Normal Skin: Dry, Normal Color, Warm Lymphatic: No Adenopathy Was a procedure done? Was a procedure done?: No GI differential Dx Differential Diagnosis: Gastritis/PUD, Gastroenteritis, Pancreatitis, UTI, Electrolyte Imbalance, Food Poisoning X-Ray, Labs, Meds, VS Vital Signs Date Time Temp Pulse Resp B/P (MAP) Pulse Ox O2 Delivery O2 Flow Rate FiO2 03/20/25 06:45 97.4 98 20 135/96 100 97.4 Lab Test 03/20/25 07:04 Range/Units White Blood Count 9.5 4.4-10.8 10^3/uL Red Blood Count 5.03 4.0-5.20 10^6/uL Hemoglobin 10.3 L 12.2-16.2 g/dL Hematocrit 32.6 L 36.0-46.0 % Mean Corpuscular Volume 64.8 L 80.0-100.0 fL Mean Corpuscular Hemoglobin 20.4 L 28.0-32.0 pg Mean Corpuscular Hemoglobin Concent 31.5 L 32.0-36.0 g/dL Red Cell Distribution Width 19.2 H 11.8-14.3 % Platelet Count 322 140-450 10^3/uL Mean Platelet Volume 8.9 6.9-10.8 fL Neutrophils (%) (Auto) 83.7 H 37.0-80.0 % Lymphocytes (%) (Auto) 11.9 10.0-50.0 % Monocytes (%) (Auto) 3.8 0.0-12.0 % Eosinophils (%) (Auto) 0.3 0.0-7.0 % Basophils (%) (Auto) 0.3 0.0-2.0 % Neutrophils # (Auto) 8.0 1.6-8.6 10 ^3/uL Lymphocytes # (Auto) 1.1 0.4-5.4 10 ^3/uL Monocytes # (Auto) 0.4 0-1.3 10 ^3/uL Eosinophils # (Auto) 0 0-0.8 10 ^3/uL Basophils # (Auto) 0 0-0.2 10 ^3/uL Nucleated Red Blood Cells 0.0 % Platelet Estimate Pending Sodium Level Pending Potassium Level Pending Chloride Level Pending Carbon Dioxide Level Pending Anion Gap Pending Blood Urea Nitrogen Pending Creatinine Pending Glomerular Filtration Rate Calc Pending BUN/Creatinine Ratio Pending Serum Glucose Pending Calcium Level Pending Total Bilirubin Pending Aspartate Amino Transferase (AST) Pending Alanine Aminotransferase (ALT) Pending Alkaline Phosphatase Pending Total Protein Pending Albumin Pending Lipase Pending IMPRESSION: 1. Mucosal thickening in the rectosigmoid colon with surrounding fat stranding. Findings may be due to infectious/inflammatory colitis. 2. Increased number of right lower quadrant mesenteric lymph nodes may be reactive. Hep-Lock was established. The patient is being given medication for pain as well as Zofran for the nausea and vomiting The patient's CBC shows anemia with a hemoglobin of 10.3 hematocrit of 32.6 The patient is being started on Flagyl for inflammatory changes consistent with possible infectious origin. There is a concern that this also could be diverticulitis The patient is being admitted at this time Images Reviewed?: Images reviewed and evaluated by me Time of 1ST Reevaluation: 07:25 Reevaluation 1ST: Unchanged Patient Education/Counseling: Diagnosis, Treatment, Prognosis Family Education/Counseling: No Family Present SEPSIS Sepsis Screen Date sepsis recognized/suspect: Mar 20, 2025 Time Sepsis recognized/suspect: 646 Recent Procedure: No On Antibiotic Therapy: No Respiratory Rate >20: No Heart Rate >90: No Temp<36 C (96.8 F) or >38.3 C: No SBP <90 or MAP <65 mmHG: No New Acute Mental Status Change: No Is the patient on CPAP, BIPAP,: No Physician Orders Complete Blood Count (03/20/25 06:58) Comprehensive Metabolic Panel (03/20/25 06:58) Lipase (03/20/25 06:58) Urinalysis (03/20/25 06:58) Sodium Chloride 0.9% (03/20/25 07:00) Ct Ab Pel Wo Con-No Oral Or Iv (03/20/25 06:58) Heplock Iv (03/20/25 06:58) Rbc Morphology (03/20/25 07:04) Vital Signs Date Time Temp Pulse Resp B/P (MAP) Pulse Ox O2 Delivery O2 Flow Rate FiO2 03/20/25 06:45 97.4 98 20 135/96 100 97.4 Laboratory Tests Test 03/20/25 07:04 White Blood Count 9.5 10^3/uL (4.4-10.8) Departure 1 Departure Time of Disposition: 07:49 Impression: Primary Impression: Intractable abdominal pain Additional Impressions: Colitis Intractable vomiting Disposition: ADMITTED INPATIENT Admit to: Med Surg Condition: Fair Critical Care Note Critical Care Time?: No Stability Stability form required: Yes Unstable for transfer: ED Physician Assesment (Clinical assesment) Heart Score Heart Score: Heart Score Response (Comments) Value History N/A 0 EKG N/A 0 Age N/A 0 Risk Factors N/A 0 Troponin N/A 0 Total 0 I personally scribed for OBED LAO MD ([email or web address]) on 03/20/25 at 07:02. Electronically submitted by Purvi Tomas ([email or web address]). I personally scribed for OBED LAO MD ([email or web address]) on 03/20/25 at 07:47. Electronically submitted by Purvi Tomas ([email or web address]). OBED LAO MD Mar 20, 2025 07:02
[2025-03-20 07:28] LABS: Hematocrit 32.6 % (36.0-46.0); Hemoglobin 10.3 g/dL (12.2-16.2); Mean Corpuscular Hemoglobin 20.4 pg (28.0-32.0); Mean Corpuscular Volume 64.8 fL (80.0-100.0); Nucleated Red Blood Cells % 0.0 %
[2025-03-20 07:42] LABS: Alanine Aminotransferase 30 U/L (7-40); Alkaline Phosphatase 103 U/L (46-116); Anion Gap 11 (5-15); BUN/Creatinine Ratio 15.4 (10.0-20.0); Bilirubin, Total 0.4 mg/dL (0.2-1.0); Blood Urea Nitrogen 12 mg/dL (9-23); Calcium 9.6 mg/dL (8.7-10.4); Carbon Dioxide 25 mmol/L (20-31); Chloride 105 mmol/L (98-107); Lipase 37 U/L (12-53); Potassium 3.7 mmol/L (3.5-5.1); Sodium 141 mmol/L (136-145)
--- NOTE | 2025-03-20 07:45 | DVH ---
Exam: CT CT AB PEL WO CON-NO ORAL OR IV History: Pain. Comparison Study: CT CT AB PEL WO CON-NO ORAL OR IV on DOS: 11/17/24. Technique: Multidetector spiral CT of the abdomen and pelvis was performed from lung bases to pubic symphysis. Imaging was performed without intravenous contrast. Coronal and sagittal multiplanar reformats were obtained from the axial data set by the technologist. Radiation Dose : 1. Abdomen/Pelvis: CTDIvol 19.69 mGy, DLP 1040.9 mGy*cm. Findings: Evaluation of vasculature and solid organs is limited due to lack of intravenous contrast use. Lung Bases: Lung bases are clear. Visualized portions of the heart and pericardium are unremarkable. Liver: The liver is normal in size. No focal lesions. Gallbladder and Biliary Tree: The gallbladder is unremarkable. No intrahepatic or extrahepatic biliary ductal dilatation. Spleen: Unremarkable Pancreas: The pancreas is grossly unremarkable. Adrenal Glands: Unremarkable Kidneys: Kidneys are unremarkable without calculi or hydronephrosis. GI tract: The stomach is grossly normal in appearance. No evidence of small bowel wall thickening or abnormal dilatation to suggest bowel obstruction. There is mucosal thickening in the rectosigmoid colon with fat stranding. Liquid stool in the ascending colon. Normal appendix. Peritoneum/mesentery/retroperitoneum. No evidence of free intraperitoneal air. No ascites. Lymph nodes: Increased number right lower quadrant mesenteric lymph nodes. No evidence of suspicious lymphadenopathy. Abdominal Wall: Unremarkable. Vasculature: The visualized abdominal aorta is normal in size and caliber. Evaluation of abdominal and pelvic vessels is limited due to lack of intravenous contrast. Urinary Bladder: Grossly unremarkable for degree of distention. Pelvic Organs: Unremarkable Musculoskeletal: No aggressive focal bony lesions, acute fractures or dislocation. IMPRESSION: 1. Mucosal thickening in the rectosigmoid colon with surrounding fat stranding. Findings may be due to infectious/inflammatory colitis. 2. Increased number of right lower quadrant mesenteric lymph nodes may be reactive.
[2025-03-20 08:19] LABS: Albumin 4.9 g/dL (3.2-4.8); Glucose 111 mg/dL (74-106); Total Protein 8.5 g/dL (5.7-8.2)
[2025-03-20] MEDS: SODIUM CHLORIDE 0.9% 1,000 ML IVB ONE (09:04)
[2025-03-20] MEDS: ONDANSETRON HCL 4 MG/2 ML VIAL IV ONE (09:04)
[2025-03-20 09:11] VITALS: PULSE 86
[2025-03-20 09:39] LABS: Anisocytosis Slight
[2025-03-20 09:40] LABS: Ovalocytes FEW
--- NOTE | 2025-03-20 11:44 | DVHHPRES ---
History of Present Illness Resident Creating Document: DONAVON SANTOS History of Present Illness Joselin Woodson is a 39-year-old female patient who presents to the ED with chief complaint of diarrhea which started three days ago with 4-5 bowel movements daily (patient does not know if the bowel movements were bloody since she would not look at her feces) which then progressed with nausea, vomiting and abdominal pain 1:00 a.m. the day of her admission prompting her visit to the ED. patient reports having a similar episode of abdominal pain three months ago whe re she was diagnosed with colitis in the ED, she completed a course of antibiotics which improved her symptoms and followed by PCP as outpatient indicating MRI of abdomen which was within normal limits in colonoscopy which is still pending. Patient does reports unintentional weight loss of approximately 10 lb in the past month. Denies any other associated symptom. Past medical history: Uterine fibroids with anemia (she never required blood transfusion) status post hysterectomy, gestations 2/para 1/abortions 1, colitis unknown etiology (infectious/inflammatory) pending colonoscopy Surgical history: Hysterectomy Family history: Grandmother had stomach cancer and other grandmother had ovarian cancer Social history: Lives in [place] with family (next of kin is ) denies current tobacco, alcohol and other drug abuse Allergies: Denies Home medication: supplements for anemia (beef organ). Patient seen and examined at bedside. Currently still complains of abdominal pain, has no more nausea nor vomiting. Patient will be admitted for further evaluation. Past Medical History Per HPI Past Surgical History Per HPI Family History Per HPI Past Social History Per HPI Review of Systems Review of Systems Per HPI Allergies: Coded Allergies: NO KNOWN ALLERGIES (Unverified , 05/20/24) Exam Vital Signs Vital Signs Date Time Temp Pulse Resp B/P (MAP) Pulse Ox O2 Delivery O2 Flow Rate FiO2 03/20/25 09:11 86 03/20/25 09:05 18 98 Room Air 03/20/25 09:05 98.2 130/74 (92) 98.2 Exam Patient lying in bed, in no acute distress General: Lucid, afebrile, mucosae are moist, conjunctivae is pale. Cardiovascular: Normal S1 and S2. No murmurs, gallops or rubs Respiratory: Normal ventilation mechanics. Clear lung sounds on auscultation Abdomen: Soft, tenderness in left flank with no radiation, rest of abdomen nontender, no organomegaly, normal bowel sounds MSK/skin: Mobilizes 4 limbs. Skin is dry and warm Neurological: Oriented in 3 spheres. No motor no sensitive deficits. Pupils are isocoric and reactive Labs/Xrays Labs Test 03/20/25 07:04 Range/Units White Blood Count 9.5 4.4-10.8 10^3/uL Red Blood Count 5.03 4.0-5.20 10^6/uL Hemoglobin 10.3 L 12.2-16.2 g/dL Hematocrit 32.6 L 36.0-46.0 % Mean Corpuscular Volume 64.8 L 80.0-100.0 fL Mean Corpuscular Hemoglobin 20.4 L 28.0-32.0 pg Mean Corpuscular Hemoglobin Concent 31.5 L 32.0-36.0 g/dL Red Cell Distribution Width 19.2 H 11.8-14.3 % Platelet Count 322 140-450 10^3/uL Mean Platelet Volume 8.9 6.9-10.8 fL Neutrophils (%) (Auto) 83.7 H 37.0-80.0 % Lymphocytes (%) (Auto) 11.9 10.0-50.0 % Monocytes (%) (Auto) 3.8 0.0-12.0 % Eosinophils (%) (Auto) 0.3 0.0-7.0 % Basophils (%) (Auto) 0.3 0.0-2.0 % Neutrophils # (Auto) 8.0 1.6-8.6 10 ^3/uL Lymphocytes # (Auto) 1.1 0.4-5.4 10 ^3/uL Monocytes # (Auto) 0.4 0-1.3 10 ^3/uL Eosinophils # (Auto) 0 0-0.8 10 ^3/uL Basophils # (Auto) 0 0-0.2 10 ^3/uL Nucleated Red Blood Cells 0.0 % Platelet Estimate Adequate Hypochromasia (manual) Marked Anisocytosis (manual) Slight Microcytosis Marked Ovalocytes Few Sodium Level 141 136-145 mmol/L Potassium Level 3.7 3.5-5.1 mmol/L Chloride Level 105 98-107 mmol/L Carbon Dioxide Level 25 20-31 mmol/L Anion Gap 11 5-15 Blood Urea Nitrogen 12 9-23 mg/dL Creatinine 0.78 0.550-1.02 mg/dL Glomerular Filtration Rate Calc 100 >90 mL/min BUN/Creatinine Ratio 15.4 10.0-20.0 Serum Glucose 111 H 74-106 mg/dL Calcium Level 9.6 8.7-10.4 mg/dL Total Bilirubin 0.4 0.2-1.0 mg/dL Aspartate Amino Transferase (AST) 25 13-40 U/L Alanine Aminotransferase (ALT) 30 7-40 U/L Alkaline Phosphatase 103 46-116 U/L Total Protein 8.5 H 5.7-8.2 g/dL Albumin 4.9 H 3.2-4.8 g/dL Lipase 37 12-53 U/L SEPSIS Sepsis Screen Date sepsis recognized/suspect: Mar 20, 2025 Time Sepsis recognized/suspect: 646 Recent Procedure: No On Antibiotic Therapy: No Respiratory Rate >20: No Heart Rate >90: No Temp<36 C (96.8 F) or >38.3 C: No SBP <90 or MAP <65 mmHG: No New Acute Mental Status Change: No Is the patient on CPAP, BIPAP,: No Physician Orders Urinalysis (03/20/25 06:58) Ct Ab Pel Wo Con-No Oral Or Iv (03/20/25 06:58) Heplock Iv (03/20/25 06:58) Admit (03/20/25 11:37) Code Status (03/20/25 11:37) Acetaminophen Tablet (Tylenol Tablet) (03/20/25 11:45) Ondansetron Hcl (Zofran) (03/20/25 11:45) Complete Blood Count (03/21/25 04:00) Comprehensive Metabolic Panel (03/21/25 04:00) Npo (Nothing By Mouth) Diet (03/20/25 Lunch) Morphine Sulfate Injection (03/20/25 11:45) Oxygen By Nasal Cannula (03/20/25 11:37) Stat Ekg For Chest Pain (03/20/25 11:37) Notify Md Of Changes From Base (03/20/25 11:37) Passenger Conductor For 24 Hours (03/20/25 11:37) Emergency Dysrhythmia Protocol (03/20/25 11:37) Rhythm Strips Once Every Shift (03/20/25 11:37) Sequential Compression Device (03/20/25 11:37) Stool Wbc (03/20/25 11:37) Stool Occult Blood (03/20/25 11:37) Stool Bacterial Culture (03/20/25 11:37) Clostridium Difficile Toxin (03/20/25 11:37) NS (03/20/25 11:45) Metronidazole Ivpb Flagyl (03/20/25 14:00) Metronidazole Ivpb Flagyl (03/20/25 11:45) Ceftriaxone Ivpb Rocephin (03/21/25 09:00) Ceftriaxone Ivpb Rocephin (03/20/25 11:45) Blood Culture (03/20/25 11:37) Urine Bacterial Culture (03/20/25 11:37) Vitamin D, 25-Hydroxy (03/20/25 11:37) Vitamin B12 (03/20/25 11:37) Urinalysis (03/20/25 11:37) Thyroid Stimulating Hormone (03/20/25 11:37) PTPTT (03/20/25 11:37) Phosphorus (03/20/25 11:37) Magnesium (03/20/25 11:37) Lipid Panel (03/20/25 11:37) Lactic Acid W/ Reflex Order (03/20/25 11:37) Hemoglobin A1c (03/20/25 11:37) Drug Screen (03/20/25 11:37) Vital Signs Date Time Temp Pulse Resp B/P (MAP) Pulse Ox O2 Delivery O2 Flow Rate FiO2 03/20/25 09:11 86 03/20/25 09:05 82 18 98 Room Air 03/20/25 09:05 98.2 82 18 130/74 (92) 98 98.2 03/20/25 06:45 97.4 98 20 135/96 100 97.4 Laboratory Tests Test 03/20/25 07:04 White Blood Count 9.5 10^3/uL (4.4-10.8) Medications Medications Dose Ordered Sig/Leyla Route Start Time Stop Time Status Last Admin Dose Admin Metronidazole 100 ml @ 100 mls/hr ONCE ONCE IV 03/20/25 08:00 03/20/25 08:59 DC 03/20/25 08:00 100 MLS/HR Ondansetron HCl 4 mg ONCE ONCE IV 03/20/25 07:00 03/20/25 07:01 DC 03/20/25 09:04 4 MG Sodium Chloride 1,000 ml @ 1,000 mls/hr Q1H ONCE IVB 03/20/25 07:00 03/20/25 07:59 DC 03/20/25 09:04 1,000 MLS/HR Assessment/Plan Assessment/Plan ASSESSMENT Colitis Rule out C diff Ruled out Crohn's disease/ulcerative colitis Microcytic anemia with iron deficiency History of uterine fibroids status post hysterectomy PLAN Completed abdomen and pelvis CT which showed mucosal thickening of colon which could be infective versus inflammatory colitis, associated with increased number of mesenteric lymph nodes. Patient currently NPO for bowel rest On IV fluids Ordered stool test (white blood cell, culture, ova and parasites) Consulted GI since patient does present red flag symptoms (unintentional weight loss and anemia) Indicated IV iron On IV pantoprazole Patient currently under empiric IV antibiotic (metronidazole and ceftriaxone) Ordered contreras cultures Goals of care discussed with patient for over18 minutes: Full code status Discussed plan with Dr. Levi, patient and nurses: Patient admitted to [facility]. Consulted GI for eventual colonoscopy due to red flag symptoms (uninten tional weight loss on anemia). Currently under empiric IV antibiotics and IV fluids, continue with bowel rest (NPO). Patient has poor prognosis. Plan discussed with: Patient, Other (Nurses) My Orders Orders - DONAVON SANTOS RESIDENT Procedure Category Date Status Time Admit ADMIT 03/20/25 Transmitted 11:37 Code Status CODE 03/20/25 Transmitted 11:37 Acetaminophen Tablet PHA 03/20/25 Verified (Tylenol Tablet) 11:45 Ondansetron Hcl PHA 03/20/25 Verified (Zofran) 11:45 Complete Blood Count LAB 03/21/25 Verified 04:00 Comprehensive LAB 03/21/25 Verified Metabolic Panel 04:00 Npo (Nothing By DIET 03/20/25 Verified Mouth) Diet Lunch Morphine Sulfate PHA 03/20/25 Verified Injection 11:45 Oxygen By Nasal RT 03/20/25 Verified Cannula 11:37 Stat Ekg For Chest [facility] 03/20/25 Verified Pain 11:37 Notify Of Changes [facility] 03/20/25 Verified From Base 11:37 Passenger Conductor For VICTORIA 03/20/25 Verified 24 Hours 11:37 Emergency Dysrhythmia [facility] 03/20/25 Verified Protocol 11:37 Rhythm Strips Once [facility]IA 03/20/25 Verified Every Shift 11:37 Sequential [facility] 03/20/25 Verified Compression Device 11:37 Stool Wbc LAB 03/20/25 Transmitted 11:37 Stool Occult Blood LAB 03/20/25 Transmitted 11:37 Stool Bacterial PARVEZ 03/20/25 Transmitted Culture 11:37 Clostridium Difficile PARVEZ 03/20/25 Transmitted Toxin 11:37 NS PHA 03/20/25 Verified 11:45 Metronidazole Ivpb PHA 03/20/25 Verified Flagyl 14:00 Metronidazole Ivpb PHA 03/20/25 Verified Flagyl 11:45 Ceftriaxone Ivpb PHA 03/21/25 Verified Rocephin 09:00 Ceftriaxone Ivpb PHA 03/20/25 Verified Rocephin 11:45 Blood Culture PARVEZ 03/20/25 Transmitted 11:37 Urine Bacterial PARVEZ 03/20/25 Transmitted Culture 11:37 Vitamin D, 25-Hydroxy LAB 03/20/25 Verified 11:37 Vitamin B12 LAB 03/20/25 Verified 11:37 Urinalysis LAB 03/20/25 Verified 11:37 Thyroid Stimulating LAB 03/20/25 Verified Hormone 11:37 PTPTT LAB 03/20/25 Verified 11:37 Phosphorus LAB 03/20/25 Verified 11:37 Magnesium LAB 03/20/25 Verified 11:37 Lipid Panel LAB 03/20/25 Verified 11:37 Lactic Acid W/ Reflex LAB 03/20/25 Verified Order 11:37 Hemoglobin A1c LAB 03/20/25 Verified 11:37 Drug Screen LAB 03/20/25 Verified 11:37 Date of Service: Mar 20, 2025 Billing Provider: KAREN LEVI DO Common Visit Codes: [id number] INP/OBS CARE (HIGH) Secondary Visit Codes: [id number] CARE PLAN 30 MINUTES DONAVON SANTOS RESIDENT Mar 20, 2025 11:44 KAREN LEVI DO Mar 21, 2025 07:26
[2025-03-20] MEDS ORDERED: MORPHINE SULFATE INJ 2 MG/ml SYRG IV PRN (11:45)
[2025-03-20] MEDS: SODIUM CHLORIDE 0.9% 1,000 ML IV SCH (11:45)
[2025-03-20 12:14] LABS: Triglycerides 107.0 mg/dL (< 150)
[2025-03-20 12:15] LABS: Magnesium 2.0 mg/dL (1.6-2.6)
[2025-03-20 12:16] LABS: Cholesterol 166.0 mg/dL (< 200); HDL Cholesterol 42.0 mg/dL (40-59)
[2025-03-20 12:57] LABS: INR 1.04 (0.9-1.15); Partial Thromboplastin Time 26.8 SEC (24.5-34.5); Prothrombin Time 11.0 sec (9.3-11.8)
[2025-03-20 14:23] LABS: Iron 21.0 ug/dL (50-170)
[2025-03-20 14:24] LABS: Total Iron Binding Capacity 405.0 ug/dL (250-425)
[2025-03-20 14:41] LABS: Wright Stain Ready for Review
[2025-03-20 15:12] LABS: Ferritin 5.4 ng/mL (10-291)
[2025-03-20] MEDS ORDERED: IRON SUCROSE COMPLEX 110 ML IV ONE ×2 (16:45→17:00)
--- NOTE | 2025-03-20 16:47 | DVHCONRES ---
Date Seen: Mar 20, 2025 Resident Creating Document: BREANA GHOTRA RESIDENT Referring Physician DR SANTOS History of Present Illness This is a 39-year-old female who presented to the ER with a chief complaint of nausea vomiting and diarrhea for the past 3 days, also reports left lower quadrant abdominal pain. She does not know whether there is blood in the diarrhea or not. Patient reports chills but denies fever or night sweats, says that she has had hysterectomy in the past. Patient was recently seen by her PCP and was advised to get a colonoscopy done but she could not get an appointment. She does report unintentional weight loss around 40 lb. Does report that her son is currently experiencing flu-like symptoms. Labs show microcytic anemia, hemoglobin 10, MCV 64, high RDW. Iron profile conf irms iron-deficiency anemia. Patient seen and examined. Left lower quadrant tenderness to palpation. Allergies: Coded Allergies: NO KNOWN ALLERGIES (Unverified , 05/20/24) Home Meds Active Scripts Ciprofloxacin Hcl (Cipro) 500 Mg Tab, 1 TAB PO BID, #20 TAB Prov:LIDA SCHMITT 11/17/24 Loperamide Hcl (Imodium) 2 Mg Cp, 2 MG PO Q12HP PRN for 2 Days, #4 CAP Prov:SUE LÓPEZ MD 05/21/24 Cephalexin Monohydrate (Cephalexin) 500 Mg Tab, 1 TAB PO QID, #40 TAB Prov:SUE LÓPEZ MD 05/21/24 Current Medications Current Medications Medications (Trade) Dose Ordered Sig/Leyla Route PRN Reason Start Time Stop Time Status Last Admin Acetaminophen (Tylenol Tablet) 325 mg Q4HP PRN PO MILD PAIN (1-3 PAIN SCALE) 03/20/25 11:45 Ondansetron HCl (Zofran) 4 mg Q4HP PRN IV NAUSEA / VOMITING 03/20/25 11:45 Morphine Sulfate 2 mg Q4HPRN PRN IV SEVERE PAIN (7-10 PAIN SCALE) 03/20/25 11:45 Sodium Chloride 1,000 ml @ 125 mls/hr Q8H IV 03/20/25 11:45 Metronidazole 100 ml @ 100 mls/hr Q8HR IV 03/20/25 14:00 Ceftriaxone Sodium 50 ml @ 100 mls/hr DAILY@09 IV 03/21/25 09:00 Review of Systems Eyes: No Pain, No Vision change, No Conjunctivae inflammation, No Eyelid inflammation, No Other, No Redness ENT: No Ear pain, No Ear discharge, No Nose pain, No Nose discharge, No Nose congestion, No Mouth pain, No Mouth swelling, No Throat pain, No Throat swelling, No Other Cardiovascular: No Chest Pain, No Palpitations, No Orthopnea, No PND, No Edema, No Lt Headedness, No Other Respiratory: No Cough, No Dry, No Shortness of breath, No SOB with exertion, No Wheezing, No Hemoptysis, No Pleuritic Pain, No Sputum, No Other Gastrointestinal: Reports nausea vomiting, abdominal pain No Diarrhea, No Constipation, No Melena, No Hematochezia, No Other Genitourinary: No Dysuria, No Frequency, No Incontinence, No Hematuria, No Retention, No Other Musculoskeletal: No other, No neck pain, No shoulder pain, No arm pain, No back pain, No hand pain, No leg pain, No foot pain Skin: No Rash, No Lesions, No Jaundice, No Bruising, No Other Vital Signs Vital Signs Date Time Temp Pulse Resp B/P (MAP) Pulse Ox O2 Delivery O2 Flow Rate FiO2 03/20/25 13:44 98.0 74 18 116/72 (87) 100 98.0 03/20/25 09:05 Room Air Physical Exam Obese female sitting in the chair comfortably in ER, no acute distress General: Obese, afebrile, palor, mucosae are moist Cardiovascular: Regular S1 and S2. No murmurs, gallops or rubs. No JVD elevation. No pedal edema Respiratory: Normal B/L air entry on room air. Clear lung sounds on auscultation Abdomen: Soft, mild tenderness in left lower quadrant, nondistended, normoactive bowel sounds, no rebound tenderness, no organomegaly, no masses Genitourinary: Deferred MSK/skin: Mobilizes 4 limbs. Skin is dry and warm Neurological: No motor, no sensitive deficits, normal speech. Pupils are isocoric and reactive. Psych/Mental Status: A/Ox3 Labs/Diagnostic Data Labs Test 03/20/25 12:13 03/20/25 07:04 Range/Units Prothrombin Time 11.0 9.3-11.8 sec Prothrombin Time INR 1.04 0.9-1.15 Activated Partial Thromboplast Time 26.8 24.5-34.5 SEC Lactic Acid Level 1.2 0.4-2.0 mmol/L Iron Level 21 L 50-170 ug/dL Total Iron Binding Capacity 405 250-425 ug/dL Percent Iron Saturation 5.2 L 15-50 % White Blood Count 9.5 4.4-10.8 10^3/uL Red Blood Count 5.03 4.0-5.20 10^6/uL Hemoglobin 10.3 L 12.2-16.2 g/dL Hematocrit 32.6 L 36.0-46.0 % Mean Corpuscular Volume 64.8 L 80.0-100.0 fL Mean Corpuscular Hemoglobin 20.4 L 28.0-32.0 pg Mean Corpuscular Hemoglobin Concent 31.5 L 32.0-36.0 g/dL Red Cell Distribution Width 19.2 H 11.8-14.3 % Platelet Count 322 140-450 10^3/uL Mean Platelet Volume 8.9 6.9-10.8 fL Neutrophils (%) (Auto) 83.7 H 37.0-80.0 % Lymphocytes (%) (Auto) 11.9 10.0-50.0 % Monocytes (%) (Auto) 3.8 0.0-12.0 % Eosinophils (%) (Auto) 0.3 0.0-7.0 % Basophils (%) (Auto) 0.3 0.0-2.0 % Neutrophils # (Auto) 8.0 1.6-8.6 10 ^3/uL Lymphocytes # (Auto) 1.1 0.4-5.4 10 ^3/uL Monocytes # (Auto) 0.4 0-1.3 10 ^3/uL Eosinophils # (Auto) 0 0-0.8 10 ^3/uL Basophils # (Auto) 0 0-0.2 10 ^3/uL Nucleated Red Blood Cells 0.0 % Platelet Estimate Adequate Hypochromasia (manual) Marked Anisocytosis (manual) Slight Microcytosis Marked Ovalocytes Few Reticulocyte Count (auto) 1.32 0.5-1.5 % Sodium Level 141 136-145 mmol/L Potassium Level 3.7 3.5-5.1 mmol/L Chloride Level 105 98-107 mmol/L Carbon Dioxide Level 25 20-31 mmol/L Anion Gap 11 5-15 Blood Urea Nitrogen 12 9-23 mg/dL Creatinine 0.78 0.550-1.02 mg/dL Glomerular Filtration Rate Calc 100 >90 mL/min BUN/Creatinine Ratio 15.4 10.0-20.0 Serum Glucose 111 H 74-106 mg/dL Hemoglobin A1c 5.4 <5.7 % A1C Calcium Level 9.6 8.7-10.4 mg/dL Phosphorus Level 3.2 2.4-5.1 mg/dL Magnesium Level 2.0 1.6-2.6 mg/dL Ferritin 5.4 L 10-291 ng/mL Total Bilirubin 0.4 0.2-1.0 mg/dL Aspartate Amino Transferase (AST) 25 13-40 U/L Alanine Aminotransferase (ALT) 30 7-40 U/L Alkaline Phosphatase 103 46-116 U/L Total Protein 8.5 H 5.7-8.2 g/dL Albumin 4.9 H 3.2-4.8 g/dL Triglycerides Level 107 < 150 mg/dL Cholesterol Level 166 < 200 mg/dL LDL Cholesterol 121 H < 100 mg/dL HDL Cholesterol 42 40-59 mg/dL Lipase 37 12-53 U/L Vitamin B12 Level 448 211-911 pg/mL Vitamin D 25-Hydroxy 39.1 30.0-100 ng/mL Folic Acid 23.50 >5.38 ng/mL Thyroid Stimulating Hormone (TSH) 2.48 0.55-4.78 uIU/mL Assessment Acute gastroenteritis Rule out GI bleeding Iron-deficiency anemia Unintentional weight loss Dyslipidemia Obesity History of hysterectomy CT abdomen shows: 1. Mucosal thickening in the rectosigmoid colon with surrounding fat stranding. Findings may be due to infectious/inflammatory colitis. 2. Increased number of right lower quadrant mesenteric lymph nodes may be reactive. Plan: Recommendation: Dr. Luna: Given the nausea, vomiting and diarrhea, we recommend medical management for now. Stool studies, COVID and flu pending. Given the iron-deficiency anemia, unintentional weight loss, patient will benefit from colonoscopy likely as outpatient. Follow up with COVID and flu studies, follow up with the stool studies Recommend IV iron supplementation, IV antibiotics, maintenance IV fluids Follow up with the ESR and CRP Pantoprazole 40 mg daily Clear liquid diet We will continue to follow up Thank you for consulting GI Plan discussed with the patient in which all questions have been answered Case discussed with Dr. Luna Plan discussed with: Patient BREANA GHOTRA RESIDENT Mar 20, 2025 16:47
[2025-03-20 22:04] LABS: COVID19 ANTIGEN SOFIA FIA NEGATIVE (NEGATIVE)
[2025-03-20] MEDS: PANTOPRAZOLE 40 MG/10 ML VIAL INJ IV ONE (22:21)
[2025-03-20] MEDS: ACETAMINOPHEN 325 MG TAB PO PRN (23:54)
[2025-03-21 01:22] LABS: Urine Amorphous Crystal MOD /hpf (None Seen); Urine Protein, UAD 1+ (Negative)
[2025-03-21 01:42] LABS: Amphetamine Screen, Urine Neg (NEGATIVE); Barbiturate Scree,Urine Neg (NEGATIVE); Benzodiazephine Screen, Urine Neg (NEGATIVE); Cannabinoid Screen, Urine Neg (NEGATIVE); Cocaine Screen, Urine Neg (NEGATIVE); Opiate Scree,Urine Neg (NEGATIVE); Phencyclidine Screen, Urine Neg (NEGATIVE)
[2025-03-21] MEDS: IRON SUCROSE COMPLEX 110 ML IV SCH (01:54)
[2025-03-21 06:45] LABS: Hematocrit 27.7 % (36.0-46.0); Hemoglobin 8.7 g/dL (12.2-16.2); Mean Corpuscular Hemoglobin 20.6 pg (28.0-32.0); Mean Corpuscular Volume 65.8 fL (80.0-100.0); Nucleated Red Blood Cells % 0.1 %
[2025-03-21 07:01] LABS: Alanine Aminotransferase 25 U/L (7-40); Alkaline Phosphatase 85 U/L (46-116); Anion Gap 11 (5-15); BUN/Creatinine Ratio 17.1 (10.0-20.0); Blood Urea Nitrogen 13 mg/dL (9-23); Calcium 9.0 mg/dL (8.7-10.4); Carbon Dioxide 23 mmol/L (20-31); Glucose 82 mg/dL (74-106); Potassium 3.5 mmol/L (3.5-5.1); Sodium 142 mmol/L (136-145)
[2025-03-21 07:02] LABS: Total Protein 7.3 g/dL (5.7-8.2)
[2025-03-21 07:03] LABS: Albumin 4.2 g/dL (3.2-4.8)
[2025-03-21 07:04] LABS: Bilirubin, Total 0.6 mg/dL (0.2-1.0)
[2025-03-21 07:05] LABS: Chloride 108 mmol/L (98-107)
[2025-03-21 07:50] VITALS: PULSE 81; RESP 13; O2SAT 97
[2025-03-21] MEDS: ONDANSETRON HCL 4 MG/2 ML VIAL IV PRN (09:14)
[2025-03-21] MEDS: PANTOPRAZOLE 40 MG/10 ML VIAL INJ IV SCH (09:15)
--- NOTE | 2025-03-21 13:34 | DVHPN2 ---
Reviewed: Care Plan, H&P, Labs, Medications, Previous Orders, Radiology Changes from previous H/P or p: No Changes Objective Vitals Vital Signs Date Time Temp Pulse Resp B/P (MAP) Pulse Ox O2 Delivery O2 Flow Rate FiO2 03/21/25 12:00 98.4 80 15 118/67 (84) 96 98.4 03/21/25 07:50 Room Air* 0 21 Medications Current Medications Medications Dose Ordered Sig/Leyla Route Start Time Stop Time Status Last Admin Dose Admin Acetaminophen 325 mg Q4HP PRN PO 03/20/25 11:45 03/21/25 09:14 325 MG Ondansetron HCl 4 mg Q4HP PRN IV 03/20/25 11:45 03/21/25 09:14 4 MG Morphine Sulfate 2 mg Q4HPRN PRN IV 03/20/25 11:45 Sodium Chloride 1,000 ml @ 125 mls/hr Q8H IV 03/20/25 11:45 03/21/25 12:24 125 MLS/HR Metronidazole 100 ml @ 100 mls/hr Q8HR IV 03/20/25 14:00 03/21/25 06:15 100 MLS/HR Ceftriaxone Sodium 50 ml @ 100 mls/hr DAILY@09 IV 03/21/25 09:00 03/21/25 09:14 100 MLS/HR Pantoprazole Sodium 40 mg DAILY IV 03/21/25 10:00 03/21/25 09:15 40 MG Iron Sucrose 110 ml @ 110 mls/hr DAILY@2100 IV 03/20/25 21:00 03/24/25 23:00 03/21/25 01:54 110 MLS/HR Laboratory Results Laboratory Tests 03/21/25 05:44 Chemistry Test 03/21/25 05:44 Albumin 4.2 g/dL (3.2-4.8) Calcium Level 9.0 mg/dL (8.7-10.4) Total Protein 7.3 g/dL (5.7-8.2) LFT Test 03/21/25 05:44 Alanine Aminotransferase (ALT) 25 U/L (7-40) Alkaline Phosphatase 85 U/L (46-116) Aspartate Amino Transferase (AST) 22 U/L (13-40) Total Bilirubin 0.6 mg/dL (0.2-1.0) Urinalysis Test 03/21/25 00:17 Urine Color Light-orange (Yellow) Urine Clarity Ex.turbid (Clear) Urine pH 5.5 (5.0-9.0) Urine Specific [place] 1.034 (1.001-1.035) Urine Protein 1+ (Negative) H Urine Ketones 2+ (Negative) H Urine Blood 1+ /uL (Negative) H Urine Nitrite Negative (Negative) Urine Bilirubin Negative (Negative) Urine Urobilinogen Normal mg/dL (Negative) Urine Leukocyte Esterase 2+ /uL (Negative) Urine RBC None seen /hpf (0 - 4) Urine Microscopic WBC 54 /HPF (0-5) H Urine Squamous Epithelial Cells Mod /hpf (<5) Urine Amorphous Crystals Mod /hpf (None Seen) Urine Bacteria None seen /hpf (None Seen) Urine Glucose Normal mg/dL (Normal) Microbiology Microbiology Date/Time Source Procedure Growth Status 03/20/25 12:13 Blood Blood Culture - Preliminary Resulted Labs and/or images reviewed: Labs reviewed by me, Image(s) reviewed by me Assessment/Plan Assessment/Plan Acute gastroenteritis Miranda Osman, GI consult by Dr. Yasmin Luna appreciated Rule out GI bleeding Iron-deficiency anemia Unintentional weight loss Dyslipidemia Obesity History of hysterectomy Time Spent 55 minutes Advanced care planning time 20 minutes Plan discussed with: Patient Date of Service: Mar 21, 2025 Billing Provider: PARIS MELO MD Common Visit Codes: [id number] DISCH DAY <30MIN Secondary Visit Codes: [id number] CARE PLAN 30 MINUTES PARIS MELO MD Mar 21, 2025 13:34
[2025-03-21] MEDS ORDERED: VANCOMYCIN PER PHARMACY 0 MG IV SCH (14:30)
[2025-03-21] MEDS: VANCOMYCIN 1.5GM/250ML 250 ML IV ONE (14:45)
[2025-03-21 15:39] VITALS: BP 125/77; PULSE 77; RESP 20; TEMP 97.7; O2SAT 99
[2025-03-21 15:59] VITALS: O2SAT 98
--- NOTE | 2025-03-21 16:04 | DVHPN2 ---
Progress Note Date Seen: Mar 21, 2025 Resident Creating Document: BREANA GHOTRA RESIDENT Medical Necessity Reason Pt with a Central, PICC or Fol: No Subjective Review of Systems This is a 39-year-old female who presented to the ER with a chief complaint of nausea vomiting and diarrhea for the past 3 days, also reports left lower quadrant abdominal pain. She does not know whether there is blood in the diarrhea or not. Patient reports chills but denies fever or night sweats, says that she has had hysterectomy in the past. Patient was recently seen by her PCP and was advised to get a colonoscopy done but she could not get an appointment. She does report unintentional weight loss around 40 lb. Does report that her son is currently experiencing flu-like symptoms. Labs show microcytic anemia, hemoglobin 10, MCV 64, high RDW. Iron profile confirms iron-deficiency anemia. 03/20-Patient seen and examined. Left lower quadrant tenderness to palpation. 03/21-patient seen and examined. Reports feeling better. No bowel movement today. Advanced diet to full liquid. Recommend Repeat blood culture. Objective vital signs Vital Sign Date Time Temp Pulse Resp B/P (MAP) Pulse Ox O2 Delivery O2 Flow Rate FiO2 03/21/25 14:00 88 17 120/57 (78) 98 03/21/25 12:00 98.4 98.4 03/21/25 07:50 Room Air* 0 21 medications Current Medications Medications Dose Ordered Sig/Leyla Route Start Time Stop Time Status Last Admin Dose Admin Acetaminophen 325 mg Q4HP PRN PO 03/20/25 11:45 03/21/25 09:14 325 MG Ondansetron HCl 4 mg Q4HP PRN IV 03/20/25 11:45 03/21/25 09:14 4 MG Morphine Sulfate 2 mg Q4HPRN PRN IV 03/20/25 11:45 Sodium Chloride 1,000 ml @ 125 mls/hr Q8H IV 03/20/25 11:45 03/21/25 12:24 125 MLS/HR Metronidazole 100 ml @ 100 mls/hr Q8HR IV 03/20/25 14:00 03/21/25 14:12 100 MLS/HR Ceftriaxone Sodium 50 ml @ 100 mls/hr DAILY@09 IV 03/21/25 09:00 03/21/25 09:14 100 MLS/HR Pantoprazole Sodium 40 mg DAILY IV 03/21/25 10:00 03/21/25 09:15 40 MG Iron Sucrose 110 ml @ 110 mls/hr DAILY@2100 IV 03/20/25 21:00 03/24/25 23:00 03/21/25 01:54 110 MLS/HR Vancomycin HCl 0 ml @ 0 mls/hr PER PHARMACY IV 03/21/25 14:30 Examination Obese female sitting in the chair comfortably in ER, no acute distress General: Obese, afebrile, palor, mucosae are moist Cardiovascular: Regular S1 and S2. No murmurs, gallops or rubs. No JVD elevation. No pedal edema Respiratory: Normal B/L air entry on room air. Clear lung sounds on auscultation Abdomen: Soft, mild tenderness in left lower quadrant, nondistended, normoactive bowel sounds, no rebound tenderness, no organomegaly, no masses Genitourinary: Deferred MSK/skin: Mobilizes 4 limbs. Skin is dry and warm Neurological: No motor, no sensitive deficits, normal speech. Pupils are isocoric and reactive. Psych/Mental Status: A/Ox3 laboratory and microbiology Laboratory Tests 03/21/25 05:44 Test 03/21/25 05:44 Range/Units Serum Glucose 82 74-106 mg/dL Microbiology Date/Time Source Procedure Growth Status 03/20/25 12:13 Blood Blood Culture - Preliminary Resulted Labs and/or images reviewed: Labs reviewed by me, Image(s) reviewed by me Problem List/Assessment/Plan Problem List/Assessment/Plan Acute gastroenteritis Rule out GI bleeding Iron-deficiency anemia Unintentional weight loss Dyslipidemia Obesity History of hysterectomy CT abdomen shows: 1. Mucosal thickening in the rectosigmoid colon with surrounding fat stranding. Findings may be due to infectious/inflammatory colitis. 2. Increased number of right lower quadrant mesenteric lymph nodes may be reactive. Plan: Recommendation: Dr. Luna: Given the nausea, vomiting and diarrhea, we recommend medical management for now. COVID and influenza negative. Stool occult negative. Stool WBC pending. H&H downtrending, monitor H&H. Continue IV iron. Given the iron-deficiency anemia, unintentional weight loss, patient will benefit from colonoscopy likely as outpatient. One set of blood culture positive for Gram-positive cocci in cluster, repeat blood cultures. Recommend IV iron supplementation, IV antibiotics, maintenance IV fluids ESR CRP negative. Pantoprazole 40 mg daily Clear liquid diet, advanced to full liquids We will continue to follow up Thank you for consulting GI Plan discussed with the patient in which all questions have been answered Case discussed with Dr. Luna Plan discussed with: Patient My Orders My Orders Orders - BREANA GHOTRA Procedure Category Date Status Time Clear Liq Diet DIET 03/20/25 Transmitted Dinner Pantoprazole PHA 03/21/25 In Process (Protonix) 10:00 BREANA GHOTRA Mar 21, 2025 16:04
[2025-03-21 20:00] VITALS: PULSE 83; RESP 20; O2SAT 98
[2025-03-21 20:37] VITALS: BP 108/57; PULSE 83; RESP 20; TEMP 98; O2SAT 98
[2025-03-22] VITALS (7 sets, daily range): BP systolic 91–127; BP diastolic 61–81; PULSE 63–79; RESP 16–20; TEMP 97.1–98.2; O2SAT 97–100
[2025-03-22] MEDS: VANCOMYCIN 1.25GM/250ML 250 ML IV SCH (01:00)
--- NOTE | 2025-03-22 09:33 | DVHPN2 ---
Reviewed: Care Plan, H&P, Labs, Medications, Previous Orders, Radiology Changes from previous H/P or p: No Changes Objective Vitals Vital Signs Date Time Temp Pulse Resp B/P (MAP) Pulse Ox O2 Delivery O2 Flow Rate FiO2 03/22/25 05:19 98.1 72 20 110/63 (79) 97 98.1 03/21/25 20:00 Room Air* 0 21 Intake/Output Intake and Output 03/22/25 07:00 Intake Total 3210 ml Balance 3210 ml Intake Oral 1850 ml IV Total 1360 ml # Voids 4 # Bowel Movements 2 Medications Current Medications Medications Dose Ordered Sig/Leyla Route Start Time Stop Time Status Last Admin Dose Admin Acetaminophen 325 mg Q4HP PRN PO 03/20/25 11:45 03/22/25 08:55 325 MG Ondansetron HCl 4 mg Q4HP PRN IV 03/20/25 11:45 03/22/25 09:04 4 MG Morphine Sulfate 2 mg Q4HPRN PRN IV 03/20/25 11:45 Sodium Chloride 1,000 ml @ 125 mls/hr Q8H IV 03/20/25 11:45 03/22/25 04:50 125 MLS/HR Metronidazole 100 ml @ 100 mls/hr Q8HR IV 03/20/25 14:00 03/22/25 05:18 100 MLS/HR Ceftriaxone Sodium 50 ml @ 100 mls/hr DAILY@09 IV 03/21/25 09:00 03/22/25 08:55 100 MLS/HR Pantoprazole Sodium 40 mg DAILY IV 03/21/25 10:00 03/22/25 08:54 40 MG Iron Sucrose 110 ml @ 110 mls/hr DAILY@2100 IV 03/20/25 21:00 03/24/25 23:00 03/21/25 20:18 110 MLS/HR Vancomycin HCl 0 ml @ 0 mls/hr PER PHARMACY IV 03/21/25 14:30 Vancomycin HCl 250 ml @ 200 mls/hr Q10H IV 03/22/25 01:00 Laboratory Results Laboratory Tests 03/21/25 05:44 03/22/25 04:33 Urinalysis Test 03/21/25 00:17 Urine Color Light-orange (Yellow) Urine Clarity Ex.turbid (Clear) Urine pH 5.5 (5.0-9.0) Urine Specific [place] 1.034 (1.001-1.035) Urine Protein 1+ (Negative) H Urine Ketones 2+ (Negative) H Urine Blood 1+ /uL (Negative) H Urine Nitrite Negative (Negative) Urine Bilirubin Negative (Negative) Urine Urobilinogen Normal mg/dL (Negative) Urine Leukocyte Esterase 2+ /uL (Negative) Urine RBC None seen /hpf (0 - 4) Urine Microscopic WBC 54 /HPF (0-5) H Urine Squamous Epithelial Cells Mod /hpf (<5) Urine Amorphous Crystals Mod /hpf (None Seen) Urine Bacteria None seen /hpf (None Seen) Urine Glucose Normal mg/dL (Normal) Microbiology Microbiology Date/Time Source Procedure Growth Status 03/21/25 00:17 Stool Stool Culture Pending Resulted 03/21/25 00:17 Stool Shiga Toxin I & II Pending Resulted 03/21/25 00:17 Stool Clostridium difficile Toxin Assay - Final Resulted 03/20/25 12:13 Blood Blood Culture - Preliminary Resulted Labs and/or images reviewed: Labs reviewed by me, Image(s) reviewed by me Assessment/Plan Assessment/Plan Acute gastroenteritis Ricardoepjeff Osman, GI consult by Dr. Yasmin Luna appreciated Rule out GI bleeding Iron-deficiency anemia hemoglobin 8.7: Iron transfusion Unintentional weight loss: CRP negative ESR negative Dyslipidemia Obesity History of hysterectomy Acute UTI: Urine cultures, Rocephin Flu test negative COVID negative C diff negative Gram-positive cocci in clusters in the blood in one set of blood cultures, possible contamination, patient received vancomycin and developed allergic reaction DC vancomycin Allergic reaction to vancomycin: Patient was informed Stool for Shigella pending Time Spent 55 minutes Advanced care planning time 20 minutes JOSH meeks at bedside Plan discussed with: Patient Date of Service: Mar 22, 2025 Billing Provider: PARIS MELO MD Common Visit Codes: [id number] INP/OBS CARE(HIGH) PARIS MELO MD Mar 22, 2025 09:33
--- NOTE | 2025-03-22 11:06 | DVHPN2 ---
Progress Note Date Seen: Mar 22, 2025 Resident Creating Document: BREANA GHOTRA RESIDENT Medical Necessity Reason Pt with a Central, PICC or Fol: No Subjective Review of Systems This is a 39-year-old female who presented to the ER with a chief complaint of nausea vomiting and diarrhea for the past 3 days, also reports left lower quadrant abdominal pain. She does not know whether there is blood in the diarrhea or not. Patient reports chills but denies fever or night sweats, says that she has had hysterectomy in the past. Patient was recently seen by her PCP and was advised to get a colonoscopy done but she could not get an appointment. She does report unintentional weight loss around 40 lb. Does report that her son is currently experiencing flu-like symptoms. Labs show microcytic anemia, hemoglobin 10, MCV 64, high RDW. Iron profile confirms iron-deficiency anemia. 03/20-Patient seen and examined. Left lower quadrant tenderness to palpation. 03/21-patient seen and examined. Reports feeling better. No bowel movement today. Advanced diet to full liquid. Recommend Repeat blood culture. 03/22-patient seen and examined. Reporting One episode of diarrhea, nonbloody Objective vital signs Vital Sign Date Time Temp Pulse Resp B/P (MAP) Pulse Ox O2 Delivery O2 Flow Rate FiO2 03/22/25 09:00 98.1 76 18 119/71 (87) 97 98.1 03/21/25 20:00 Room Air* 0 21 Total Intake and Output 03/21/25 03/21/25 03/22/25 15:00 23:00 07:00 Intake Total 1150 ml 1560 ml 500 ml Balance 1150 ml 1560 ml 500 ml medications Current Medications Medications Dose Ordered Sig/Leyla Route Start Time Stop Time Status Last Admin Dose Admin Acetaminophen 325 mg Q4HP PRN PO 03/20/25 11:45 03/22/25 08:55 325 MG Ondansetron HCl 4 mg Q4HP PRN IV 03/20/25 11:45 03/22/25 09:04 4 MG Morphine Sulfate 2 mg Q4HPRN PRN IV 03/20/25 11:45 Sodium Chloride 1,000 ml @ 125 mls/hr Q8H IV 03/20/25 11:45 03/22/25 04:50 125 MLS/HR Metronidazole 100 ml @ 100 mls/hr Q8HR IV 03/20/25 14:00 03/22/25 05:18 100 MLS/HR Ceftriaxone Sodium 50 ml @ 100 mls/hr DAILY@09 IV 03/21/25 09:00 03/22/25 08:55 100 MLS/HR Pantoprazole Sodium 40 mg DAILY IV 03/21/25 10:00 03/22/25 08:54 40 MG Iron Sucrose 110 ml @ 110 mls/hr DAILY@2100 IV 03/20/25 21:00 03/24/25 23:00 03/21/25 20:18 110 MLS/HR Vancomycin HCl 0 ml @ 0 mls/hr PER PHARMACY IV 03/21/25 14:30 Vancomycin HCl 250 ml @ 200 mls/hr Q10H IV 03/22/25 01:00 Examination Obese female sitting in the chair comfortably in ER, no acute distress General: Obese, afebrile, palor, mucosae are moist Cardiovascular: Regular S1 and S2. No murmurs, gallops or rubs. No JVD elevation. No pedal edema Respiratory: Normal B/L air entry on room air. Clear lung sounds on auscultation Abdomen: Soft, mild tenderness in left lower quadrant, nondistended, normoactive bowel sounds, no rebound tenderness, no organomegaly, no masses Genitourinary: Deferred MSK/skin: Mobilizes 4 limbs. Skin is dry and warm Neurological: No motor, no sensitive deficits, normal speech. Pupils are isocoric and reactive. Psych/Mental Status: A/Ox3 laboratory and microbiology Laboratory Tests 03/22/25 04:33 03/21/25 05:44 Test 03/21/25 05:44 Range/Units Serum Glucose 82 74-106 mg/dL Microbiology Date/Time Source Procedure Growth Status 03/21/25 00:17 Stool Stool Culture Pending Resulted 03/21/25 00:17 Stool Shiga Toxin I & II Pending Resulted 03/21/25 00:17 Stool Clostridium difficile Toxin Assay - Final Resulted 03/20/25 12:13 Blood Blood Culture - Preliminary Resulted Labs and/or images reviewed: Labs reviewed by me, Image(s) reviewed by me Problem List/Assessment/Plan Problem List/Assessment/Plan Acute gastroenteritis Rule out GI bleeding Iron-deficiency anemia Unintentional weight loss Dyslipidemia Obesity History of hysterectomy CT abdomen shows: 1. Mucosal thickening in the rectosigmoid colon with surrounding fat stranding. Findings may be due to infectious/inflammatory colitis. 2. Increased number of right lower quadrant mesenteric lymph nodes may be reactive. Plan: Recommendation: Dr. Luna: Diet resolving, patient feeling better. Continue medical management. COVID and influenza negative. Stool occult negative. Stool WBC negative. H&H downtrending, monitor H&H. Continue IV iron. Given the iron-deficiency anemia, unintentional weight loss, patient will benefit from colonoscopy likely as outpatient. One set of blood culture positive for Gram-positive cocci in cluster, repeat blood cultures. Recommend IV iron supplementation, IV antibiotics, maintenance IV fluids ESR CRP negative. Pantoprazole 40 mg daily Continue full liquids, advanced to soft as tolerated We will continue to follow up Thank you for consulting GI Plan discussed with the patient in which all questions have been answered Case discussed with Dr. Luna Plan discussed with: Patient My Orders My Orders Orders - BREANA GHOTRA Procedure Category Date Status Time Full Liq Diet DIET 03/21/25 Transmitted Dinner Blood Culture PARVEZ 03/21/25 In Process 16:04 BREANA GHOTRA Mar 22, 2025 11:06
[2025-03-23 01:00] VITALS: BP 117/73; PULSE 70; RESP 17; TEMP 98.1; O2SAT 100
[2025-03-23 05:00] VITALS: BP 117/74; PULSE 76; RESP 17; TEMP 98.1; O2SAT 98
[2025-03-23 09:00] VITALS: BP 126/83; PULSE 74; RESP 18; TEMP 97.9; O2SAT 98
[2025-03-23] MEDS ORDERED: LEVO500T91 PO (09:32)
[2025-03-23] MEDS ORDERED: METR-344 PO (09:32)
--- NOTE | 2025-03-23 09:34 | DVHPN2 ---
Reviewed: Care Plan, H&P, Labs, Medications, Previous Orders, Radiology Changes from previous H/P or p: No Changes Objective Vitals Vital Signs Date Time Temp Pulse Resp B/P (MAP) Pulse Ox O2 Delivery O2 Flow Rate FiO2 03/23/25 05:00 98.1 76 17 117/74 (88) 98 98.1 03/22/25 20:00 Room Air* 0 21 Intake/Output Intake and Output 03/23/25 07:00 Intake Total 2350 ml Balance 2350 ml Intake Oral 2200 ml IV Total 150 ml # Voids 7 # Bowel Movements 2 Medications Current Medications Medications Dose Ordered Sig/Leyla Route Start Time Stop Time Status Last Admin Dose Admin Acetaminophen 325 mg Q4HP PRN PO 03/20/25 11:45 03/22/25 08:55 325 MG Ondansetron HCl 4 mg Q4HP PRN IV 03/20/25 11:45 03/22/25 09:04 4 MG Morphine Sulfate 2 mg Q4HPRN PRN IV 03/20/25 11:45 Sodium Chloride 1,000 ml @ 125 mls/hr Q8H IV 03/20/25 11:45 03/22/25 23:45 125 MLS/HR Metronidazole 100 ml @ 100 mls/hr Q8HR IV 03/20/25 14:00 03/23/25 07:29 100 MLS/HR Ceftriaxone Sodium 50 ml @ 100 mls/hr DAILY@09 IV 03/21/25 09:00 03/22/25 08:55 100 MLS/HR Pantoprazole Sodium 40 mg DAILY IV 03/21/25 10:00 03/22/25 08:54 40 MG Iron Sucrose 110 ml @ 110 mls/hr DAILY@2100 IV 03/20/25 21:00 03/24/25 23:00 03/22/25 21:19 110 MLS/HR Laboratory Results Laboratory Tests 03/21/25 05:44 03/22/25 04:33 Urinalysis Test 03/21/25 00:17 Urine Color Light-orange (Yellow) Urine Clarity Ex.turbid (Clear) Urine pH 5.5 (5.0-9.0) Urine Specific [place] 1.034 (1.001-1.035) Urine Protein 1+ (Negative) H Urine Ketones 2+ (Negative) H Urine Blood 1+ /uL (Negative) H Urine Nitrite Negative (Negative) Urine Bilirubin Negative (Negative) Urine Urobilinogen Normal mg/dL (Negative) Urine Leukocyte Esterase 2+ /uL (Negative) Urine RBC None seen /hpf (0 - 4) Urine Microscopic WBC 54 /HPF (0-5) H Urine Squamous Epithelial Cells Mod /hpf (<5) Urine Amorphous Crystals Mod /hpf (None Seen) Urine Bacteria None seen /hpf (None Seen) Urine Glucose Normal mg/dL (Normal) Microbiology Microbiology Date/Time Source Procedure Growth Status 03/21/25 17:17 Blood Blood Culture - Preliminary NO GROWTH AFTER 24 HOURS OF INCUBATION. Resulted 03/21/25 00:17 Stool Stool Culture - Preliminary Resulted 03/21/25 00:17 Stool Shiga Toxin I & II Pending Resulted 03/21/25 00:17 Stool Clostridium difficile Toxin Assay - Final Resulted Labs and/or images reviewed: Labs reviewed by me, Image(s) reviewed by me Assessment/Plan Assessment/Plan Acute gastroenteritis Rocephin Flagyl, GI consult by Dr. Yasmin Luna appreciated Rule out GI bleeding Iron-deficiency anemia hemoglobin 8.7: Iron transfusion given Dyslipidemia Obesity History of hysterectomy Acute UTI: Urine cultures, Rocephin Flu test negative COVID negative C diff negative Blood cultures negative Allergic reaction to vancomycin: Patient was informed Stool for Shigella pending Time Spent 55 minutes Advanced care planning time 20 minutes JOSH Ngo at bedside Plan discussed with: Patient My Orders Orders - PARIS MELO MD Procedure Category Date Status Time Urine Bacterial PARVEZ 03/22/25 In Process Culture 09:30 Date of Service: Mar 23, 2025 Billing Provider: PARIS MELO MD Common Visit Codes: [id number] INP/OBS CARE(HIGH) PARIS EMLO MD Mar 23, 2025 09:34
--- NOTE | 2025-03-23 09:37 | DVHDS2 ---
Discharge Summary Date of Admission Mar 20, 2025 at 11:37 Date of Discharge: Mar 23, 2025 Admitting Diagnosis Ativan pain nausea and vomiting Wounds: None Labs/Diagnostic Data: Laboratory Results Test 03/22/25 19:59 03/22/25 04:33 03/21/25 05:44 03/21/25 00:17 Vancomycin Level Trough < 3.0 ug/mL (5-10) Creatinine 0.67 mg/dL (0.550-1.02) Glomerular Filtration Rate Calc 115 mL/min (>90) White Blood Count 5.8 10^3/uL (4.4-10.8) Red Blood Count 4.21 10^6/uL (4.0-5.20) Hemoglobin 8.7 g/dL (12.2-16.2) Hematocrit 27.7 % (36.0-46.0) Mean Corpuscular Volume 65.8 fL (80.0-100.0) Mean Corpuscular Hemoglobin 20.6 pg (28.0-32.0) Mean Corpuscular Hemoglobin Concent 31.4 g/dL (32.0-36.0) Red Cell Distribution Width 19.9 % (11.8-14.3) Platelet Count 240 10^3/uL (140-450) Mean Platelet Volume 8.9 fL (6.9-10.8) Neutrophils (%) (Auto) 64.4 % (37.0-80.0) Lymphocytes (%) (Auto) 26.0 % (10.0-50.0) Monocytes (%) (Auto) 7.8 % (0.0-12.0) Eosinophils (%) (Auto) 1.5 % (0.0-7.0) Basophils (%) (Auto) 0.3 % (0.0-2.0) Neutrophils # (Auto) 3.7 10 ^3/uL (1.6-8.6) Lymphocytes # (Auto) 1.5 10 ^3/uL (0.4-5.4) Monocytes # (Auto) 0.4 10 ^3/uL (0-1.3) Eosinophils # (Auto) 0.1 10 ^3/uL (0-0.8) Basophils # (Auto) 0 10 ^3/uL (0-0.2) Nucleated Red Blood Cells 0.1 % Sodium Level 142 mmol/L (136-145) Potassium Level 3.5 mmol/L (3.5-5.1) Chloride Level 108 mmol/L (98-107) Carbon Dioxide Level 23 mmol/L (20-31) Anion Gap 11 (5-15) Blood Urea Nitrogen 13 mg/dL (9-23) BUN/Creatinine Ratio 17.1 (10.0-20.0) Serum Glucose 82 mg/dL (74-106) Calcium Level 9.0 mg/dL (8.7-10.4) Total Bilirubin 0.6 mg/dL (0.2-1.0) Aspartate Amino Transferase (AST) 22 U/L (13-40) Alanine Aminotransferase (ALT) 25 U/L (7-40) Alkaline Phosphatase 85 U/L (46-116) Total Protein 7.3 g/dL (5.7-8.2) Albumin 4.2 g/dL (3.2-4.8) Urine Color Light-orange (Yellow) Urine Clarity Ex.turbid (Clear) Urine pH 5.5 (5.0-9.0) Urine Specific [place] 1.034 (1.001-1.035) Urine Protein 1+ (Negative) Urine Ketones 2+ (Negative) Urine Blood 1+ /uL (Negative) Urine Nitrite Negative (Negative) Urine Bilirubin Negative (Negative) Urine Urobilinogen Normal mg/dL (Negative) Urine Leukocyte Esterase 2+ /uL (Negative) Urine RBC None seen /hpf (0 - 4) Urine Microscopic WBC 54 /HPF (0-5) Urine Squamous Epithelial Cells Mod /hpf (<5) Urine Amorphous Crystals Mod /hpf (None Seen) Urine Bacteria None seen /hpf (None Seen) Urine Glucose Normal mg/dL (Normal) Stool Occult Blood Negative (Negative) Stool Occult Blood Sample #3 (Negative) Stool for White Cells None seen Urine Opiates Screen Neg (NEGATIVE) Urine Fentanyl Screen Neg (NEGATIVE) Urine Barbiturates Screen Neg (NEGATIVE) Urine Phencyclidine Screen Neg (NEGATIVE) Urine Amphetamines Screen Neg (NEGATIVE) Urine Benzodiazepines Screen Neg (NEGATIVE) Urine Cocaine Screen Neg (NEGATIVE) Urine Cannabinoids Screen Neg (NEGATIVE) Test 03/20/25 21:00 03/20/25 12:13 03/20/25 07:04 Influenza Type A Antigen Negative (Negative) Influenza Type B Antigen Negative (Negative) SARS-CoV-2 Antigen (Rapid) Negative (NEGATIVE) Haptoglobin 176 mg/dL (33-278) Prothrombin Time 11.0 sec (9.3-11.8) Prothrombin Time INR 1.04 (0.9-1.15) Activated Partial Thromboplast Time 26.8 SEC (24.5-34.5) Lactic Acid Level 1.2 mmol/L (0.4-2.0) Iron Level 21 ug/dL (50-170) Total Iron Binding Capacity 405 ug/dL (250-425) Percent Iron Saturation 5.2 % (15-50) Platelet Estimate Adequate Hypochromasia (manual) Marked Anisocytosis (manual) Slight Microcytosis Marked Ovalocytes Few Erythrocyte Sedimentation Rate 15 mm/hr (0-20) Reticulocyte Count (auto) 1.32 % (0.5-1.5) Hemoglobin A1c 5.4 % A1C (<5.7) Phosphorus Level 3.2 mg/dL (2.4-5.1) Magnesium Level 2.0 mg/dL (1.6-2.6) Ferritin 5.4 ng/mL (10-291) C-Reactive Protein High Sensitivity 0.39 mg/dL (<1.0) Triglycerides Level 107 mg/dL (< 150) Cholesterol Level 166 mg/dL (< 200) LDL Cholesterol 121 mg/dL (< 100) HDL Cholesterol 42 mg/dL (40-59) Lipase 37 U/L (12-53) Vitamin B12 Level 448 pg/mL (211-911) Vitamin D 25-Hydroxy 39.1 ng/mL (30.0-100) Folic Acid 23.50 ng/mL (>5.38) Thyroid Stimulating Hormone (TSH) 2.48 uIU/mL (0.55-4.78) Other Laboratory Tests 03/22/25 04:33 03/21/25 05:44 Brief Hx & Hospital Course: 39-year-old female with a history of iron deficiency anemia came in complaining of abdominal pain nausea and vomiting found to have acute gastroenteritis treated with the Rocephin and Flagyl GI consult by Dr. Yasmin Luna C diff is negative flu test negative COVID test negative blood cultures negative stool for Shiga pending mild UTI treated with Rocephin patient is afebrile asymptomatic and requesting to go home discharged home on Levaquin and Flagyl she will follow up with the primary Consults/Reason for consult GI Operations or Procedures CT abdomen pelvis without contrast Condition at Discharge: Fair Final Diagnosis/Problems List Acute gastroenteritis Miranda Osman, GI consult by Dr. Yasmin Luna appreciated Rule out GI bleeding Iron-deficiency anemia hemoglobin 8.7: Iron transfusion given Dyslipidemia Obesity History of hysterectomy Acute UTI: Urine cultures, Rocephin Flu test negative COVID negative C diff negative Blood cultures negative Allergic reaction to vancomycin: Patient was informed Stool for Shigella pending Discharge Disposition: Home Discharge Instruct/Medications Diet: Regular Activity: Light activity Follow Up/Referral: Follow up with the primary Dr in one week Medications: Flagyl Levaquin Transmitted to pharmacy Scheduled Cephalexin Monohydrate (Cephalexin), 1 TAB PO QID Ciprofloxacin Hcl (Cipro), 1 TAB PO BID Levofloxacin Hemihydrate (Levaquin 500 Mg), 1 TAB PO DAILY Metronidazole (Flagyl), 1 TAB PO TID Scheduled PRN Loperamide Hcl (Imodium), 2 MG PO Q12HP PRN Discharge Statement: "Patient was advised to return to the ER or call 911 if any headaches, dizziness, shortness of breath, chest pain, abdominal pain, bleeding, fevers, or worsening of medical condition. Patient was counseled about treatment plan, medications, possible side effects, patientverbalized understanding. All questions were answered to the best of my ability. This discharge took greater then 30 minutes in planning, reviewing documentation, counseling the patient, and discussing with other team members." ASSESSMENT ASSESSMENT Hospital Course Improved Assessment Acute gastroenteritis Miranda Osman, GI consult by Dr. Yasmin Luna appreciated Rule out GI bleeding Iron-deficiency anemia hemoglobin 8.7: Iron transfusion given Dyslipidemia Obesity History of hysterectomy Acute UTI: Urine cultures, Rocephin Flu test negative COVID negative C diff negative Blood cultures negative Allergic reaction to vancomycin: Patient was informed Stool for Shigella pending Date of Service: Mar 23, 2025 Billing Provider: PARIS MELO MD Common Visit Codes: [id number] DISCH DAY >30min PARIS MELO MD Mar 23, 2025 09:37
[2025-03-23 10:33] VITALS: BP 117/74; PULSE 76; RESP 17; TEMP 98.1; O2SAT 98
--- NOTE | 2025-03-23 14:17 | DVHPN2 ---
Progress Note Date Seen: Mar 23, 2025 Resident Creating Document: BREANA GHOTRA RESIDENT Medical Necessity Reason Pt with a Central, PICC or Fol: No Subjective Review of Systems No acute symptoms reported. Objective vital signs Vital Sign Date Time Temp Pulse Resp B/P (MAP) Pulse Ox O2 Delivery O2 Flow Rate FiO2 03/23/25 10:33 98.1 76 17 98 03/23/25 09:00 126/83 (97) 03/23/25 08:00 Room Air* 0 21 Total Intake and Output 03/22/25 03/22/25 03/23/25 15:00 23:00 07:00 Intake Total 50 ml 1900 ml 400 ml Balance 50 ml 1900 ml 400 ml Examination Obese female sitting in the chair comfortably in ER, no acute distress General: Obese, afebrile, palor, mucosae are moist Cardiovascular: Regular S1 and S2. No murmurs, gallops or rubs. No JVD elevation. No pedal edema Respiratory: Normal B/L air entry on room air. Clear lung sounds on auscultation Abdomen: Soft, mild tenderness in left lower quadrant, nondistended, normoactive bowel sounds, no rebound tenderness, no organomegaly, no masses Genitourinary: Deferred MSK/skin: Mobilizes 4 limbs. Skin is dry and warm Neurological: No motor, no sensitive deficits, normal speech. Pupils are isocoric and reactive. Psych/Mental Status: A/Ox3 laboratory and microbiology Laboratory Tests 03/22/25 04:33 03/21/25 05:44 Test 03/21/25 05:44 Range/Units Serum Glucose 82 74-106 mg/dL Microbiology Date/Time Source Procedure Growth Status 03/22/25 11:40 Voided Urine Urine Culture - Preliminary Resulted 03/21/25 17:17 Blood Blood Culture - Preliminary NO GROWTH AFTER 24 HOURS OF INCUBATION. Resulted 03/21/25 00:17 Stool Stool Culture - Preliminary Resulted 03/21/25 00:17 Stool Shiga Toxin I & II - Final Resulted 03/21/25 00:17 Stool Clostridium difficile Toxin Assay - Final Resulted Labs and/or images reviewed: Labs reviewed by me, Image(s) reviewed by me Problem List/Assessment/Plan Problem List/Assessment/Plan Acute gastroenteritis likely infectious Ruled out active GI bleeding Iron-deficiency anemia Unintentional weight loss Dyslipidemia Obesity History of hysterectomy CT abdomen shows: 1. Mucosal thickening in the rectosigmoid colon with surrounding fat stranding. Findings may be due to infectious/inflammatory colitis. 2. Increased number of right lower quadrant mesenteric lymph nodes may be reactive. Plan: Recommendation: Dr. Luna: Patient going home. Follow up with GI as outpatient within the next 2-4 weeks for elective colonoscopy. Continue ferrous sulfate tablets. Continue soft/pureed diet. Advanced as tolerated. ESR CRP negative. Pantoprazole 40 mg daily Continue full liquids, advanced to soft as tolerated We will continue to follow up Thank you for consulting GI Plan discussed with the patient in which all questions have been answered Case discussed with Dr. Luna Plan discussed with: Patient BREANA GHOTRA RESIDENT Mar 23, 2025 14:17
== END 2025-03-23 12:15 | disposition home or self-care (01) | DRG 249 ==
LOC: ER 06:44 → OVERFLOW 11:37 → EAST 03-21 15:39
PROVIDERS: ADMIT Family Medicine; ATTEND Family Medicine
DX: A09 Infectious gastroenteritis and colitis, unspecified (principal); K92.2 Gastrointestinal hemorrhage, unspecified; N39.0 Urinary tract infection, site not specified; D50.9 Iron deficiency anemia, unspecified; E66.9 Obesity, unspecified; R63.4 Abnormal weight loss; E78.5 Hyperlipidemia, unspecified; T36.8X5A Adverse effect of other systemic antibiotics, initial encounter; Z20.822 Contact with and (suspected) exposure to COVID-19; Z90.710 Acquired absence of both cervix and uterus; Z83.3 Family history of diabetes mellitus; Z80.41 Family history of malignant neoplasm of ovary; Z80.0 Family history of malignant neoplasm of digestive organs; Z68.32 Body mass index [BMI] 32.0-32.9, adult; Z88.1 Allergy status to other antibiotic agents
CPT/HCPCS: 36415; 74176; 80053; 80061; 80202; 80307; 81001; 82270; 82306; 82565; 82607; 82728; 82746; 83010; 83036; 83540; 83550; 83605; 83690; 83735; 84100; 84443; 85025; 85045; 85048; 85610; 85652; 85730; 86141; 87040; 87045; 87086; 87426; 87427; 87493; 87804; 96361; 96365; 96375; G0378; J1756; J2405; J2470; J3490